=== PATIENT | female | born 1995 | race Caucasian/White ===

== ENCOUNTER 2016-09-07 09:22 | Emergency (ER) | payer MEDICAID ==
[~2016-09-07] VITALS: Ht 162.6 cm; Wt 78.0 kg
[~2016-09-07 09:22] MED LIST: BUPR75TA4
[2016-09-07 10:46] VITALS: BP 139/94
== END 2016-09-07 11:34 | disposition home or self-care (01) ==
LOC: ER 09:22
DX: F41.9 Anxiety disorder, unspecified (principal)

== ENCOUNTER 2016-12-31 18:44 | Emergency (ER) | payer MEDICAID ==
[~2016-12-31] VITALS: Ht 162.6 cm; Wt 75.3 kg
[2016-12-31 20:27] VITALS: BP 124/79
== END 2016-12-31 22:09 | disposition home or self-care (01) ==
LOC: ER 18:46
DX: O20.0 Threatened abortion (principal); Z3A.14 14 weeks gestation of pregnancy; Z90.49 Acquired absence of other specified parts of digestive tract
CPT/HCPCS: 36415; 76805; 84702

== ENCOUNTER 2017-03-24 14:50 | Observation (INO) | payer MEDICAID ==
[2017-03-24] MEDS ORDERED: PREN-96 PO (16:06)
== END 2017-03-24 15:55 | disposition home or self-care (01) | DRG 566 ==
LOC: LDRP 14:50
PROVIDERS: ADMIT Specialist; ATTEND Specialist
DX: O36.8120 Decreased fetal movements, second trimester, not applicable or unspecified (principal); O23.42 Unspecified infection of urinary tract in pregnancy, second trimester; Z3A.26 26 weeks gestation of pregnancy
CPT/HCPCS: 59025; 81002; G0378

== ENCOUNTER 2017-05-08 16:32 | Observation (INO) | payer MEDICAID ==
[~2017-05-08 16:32] MED LIST changes: +PREN-96 PO
[2017-05-08 17:13] LABS: Urine Bilirubin Negative (Negative); Urine Blood Negative /uL (Negative); Urine Color Yellow (Yellow); Urine Glucose Normal (Normal); Urine Ketone Negative (Negative); Urine Mucus FEW (None Seen); Urine Nitrite POSITIVE (Negative); Urine RBC 6 /hpf (0 - 4); Urine Squamous Epithelial Cell FEW /hpf (<5); Urine Urobilinogen Normal (Negative); Urine pH 6.5 (5.0-8.0)
== END 2017-05-08 18:36 | disposition home or self-care (01) | DRG 566 ==
LOC: LDRP 16:32
PROVIDERS: ADMIT Specialist; ATTEND Specialist
DX: O46.93 Antepartum hemorrhage, unspecified, third trimester (principal); O23.43 Unspecified infection of urinary tract in pregnancy, third trimester; Z3A.32 32 weeks gestation of pregnancy
CPT/HCPCS: 59025; 76815; 80307; 81001; 81002; G0378

== ENCOUNTER 2017-05-13 01:35 | Observation (INO) | payer MEDICAID ==
[2017-05-13 02:23] LABS: Urine Bilirubin Negative (Negative); Urine Blood 3+ /uL (Negative); Urine Color Yellow (Yellow); Urine Glucose Normal (Normal); Urine Ketone 1+ (Negative); Urine Mucus FEW (None Seen); Urine Nitrite POSITIVE (Negative); Urine RBC 69 /hpf (0 - 4); Urine Squamous Epithelial Cell FEW /hpf (<5); Urine Urobilinogen Normal (Negative); Urine WBC Clumps PRESENT /hpf (None Seen)
[2017-05-13] MEDS ORDERED: LACTATED RINGER'S 1,000 ML IV ONE (02:41)
[2017-05-13] MEDS ORDERED: LACTATED RINGER'S 1,000 ML IV SCH (02:41)
[2017-05-13] MEDS ORDERED: TERBUTALINE SULFATE 1 MG/ML 1ML VIAL SC ONE ×2 (03:22→03:30)
[2017-05-13] MEDS ORDERED: cefTRIAXone 1GM/50ML D5W 50 ML IV SCH (04:00)
== END 2017-05-13 05:16 | disposition home or self-care (01) | DRG 566 ==
LOC: LDRP 01:35
PROVIDERS: ADMIT Specialist; ATTEND Specialist
DX: O26.893 Other specified pregnancy related conditions, third trimester (principal); R10.9 Unspecified abdominal pain; Z3A.33 33 weeks gestation of pregnancy
CPT/HCPCS: 59025; 76815; 81001; 81002; 96361; 96365; 96372; G0378; J3105; J7050; 96366

== ENCOUNTER 2017-05-19 12:50 | Observation (INO) | payer MEDICAID ==
[~2017-05-19 12:50] MED LIST changes: -BUPR75TA4
== END 2017-05-19 13:55 | disposition home or self-care (01) | DRG 566 ==
LOC: LDRP 12:50
PROVIDERS: ADMIT Specialist; ATTEND Specialist
DX: O26.893 Other specified pregnancy related conditions, third trimester (principal); Q62.0 Congenital hydronephrosis; R10.9 Unspecified abdominal pain; M54.9 Dorsalgia, unspecified; Z3A.34 34 weeks gestation of pregnancy
CPT/HCPCS: 59025; 81002; G0378

== ENCOUNTER 2017-05-22 11:30 | Observation (INO) | payer MEDICAID | END 2017-05-22 13:30 | disposition home or self-care (01) | DRG 563 | LOC: LDRP 11:30 | PROVIDERS: ADMIT Specialist; ATTEND Specialist | DX: O60.03 Preterm labor without delivery, third trimester (principal); Z3A.34 34 weeks gestation of pregnancy | CPT/HCPCS: 59025; 76818; 81002; G0378 ==

== ENCOUNTER 2017-05-26 14:35 | Observation (INO) | payer MEDICAID | END 2017-05-26 16:20 | disposition home or self-care (01) | DRG 566 | LOC: LDRP 14:35 | PROVIDERS: ADMIT Obstetrics & Gynecology; ATTEND Obstetrics & Gynecology | DX: O26.93 Pregnancy related conditions, unspecified, third trimester (principal); Z3A.35 35 weeks gestation of pregnancy | CPT/HCPCS: 59025; 76818; 81002; G0378 ==

== ENCOUNTER 2017-05-29 08:10 | Observation (INO) | payer MEDICAID | END 2017-05-29 09:50 | disposition home or self-care (01) | DRG 566 | LOC: LDRP 08:10 | PROVIDERS: ADMIT Obstetrics & Gynecology; ATTEND Obstetrics & Gynecology | DX: O99.89 Other specified diseases and conditions complicating pregnancy, childbirth and the puerperium (principal); N13.30 Unspecified hydronephrosis; Z3A.35 35 weeks gestation of pregnancy | CPT/HCPCS: 59025; 76818; 81002; G0378 ==

== ENCOUNTER 2017-06-02 13:25 | Observation (INO) | payer MEDICAID ==
[2017-06-02 14:33] LABS: Urine Bilirubin Negative (Negative); Urine Blood Negative /uL (Negative); Urine Color Yellow (Yellow); Urine Glucose Normal (Normal); Urine Ketone TRACE (Negative); Urine Mucus FEW (None Seen); Urine Nitrite Negative (Negative); Urine RBC 3 /hpf (0 - 4); Urine Squamous Epithelial Cell MOD /hpf (<5); Urine Urobilinogen Normal (Negative); Urine pH 6.5 (5.0-8.0)
== END 2017-06-02 14:45 | disposition home or self-care (01) | DRG 566 ==
LOC: LDRP 13:25
PROVIDERS: ADMIT Obstetrics & Gynecology; ATTEND Obstetrics & Gynecology
DX: O26.893 Other specified pregnancy related conditions, third trimester (principal); Z3A.36 36 weeks gestation of pregnancy
CPT/HCPCS: 59025; 76818; 81001; 81002; G0378

== ENCOUNTER 2017-06-04 14:00 | Observation (INO) | payer MEDICAID | END 2017-06-04 15:20 | disposition home or self-care (01) | DRG 566 | LOC: INTOOBSV 14:00 → LDRP 14:00 | PROVIDERS: ADMIT Specialist; ATTEND Specialist | DX: O99.89 Other specified diseases and conditions complicating pregnancy, childbirth and the puerperium (principal); N13.30 Unspecified hydronephrosis; Z3A.36 36 weeks gestation of pregnancy | CPT/HCPCS: 59025; 76818; 81002; G0378 ==

== ENCOUNTER 2017-06-13 21:59 | Observation (INO) | payer MEDICAID ==
[~2017-06-13] VITALS: Ht 1 cm; Wt 0.0 kg
[2017-06-13] MEDS ORDERED: ACETAMINOPHEN 325 MG TAB PO ONE (23:53)
[2017-06-14] MEDS ORDERED: ACETAMINOPHEN 325 MG TAB PO ONE
== END 2017-06-14 00:06 | disposition home or self-care (01) | DRG 566 ==
LOC: LDRP 21:59 → INTOOBSV 21:59 → LDRP 22:14
PROVIDERS: ADMIT Obstetrics & Gynecology; ATTEND Obstetrics & Gynecology
DX: O26.893 Other specified pregnancy related conditions, third trimester (principal); M54.5 Low back pain; Z3A.37 37 weeks gestation of pregnancy
CPT/HCPCS: 59025; 76818; 81002; G0378

== ENCOUNTER 2017-06-16 00:20 | Observation (INO) | payer MEDICAID | END 2017-06-16 02:58 | disposition home or self-care (01) | DRG 566 | LOC: LDRP 00:20 | PROVIDERS: ADMIT Specialist; ATTEND Specialist | DX: O42.92 Full-term premature rupture of membranes, unspecified as to length of time between rupture and onset of labor (principal); Z3A.38 38 weeks gestation of pregnancy | CPT/HCPCS: 59025; 81002; G0378 ==

== ENCOUNTER 2017-06-18 03:27 | Observation (INO) | payer MEDICAID | END 2017-06-18 05:41 | disposition home or self-care (01) | DRG 566 | LOC: LDRP 03:27 | PROVIDERS: ADMIT Specialist; ATTEND Specialist | DX: O62.9 Abnormality of forces of labor, unspecified (principal); O26.893 Other specified pregnancy related conditions, third trimester; O26.853 Spotting complicating pregnancy, third trimester; R10.9 Unspecified abdominal pain; M54.9 Dorsalgia, unspecified; Z3A.38 38 weeks gestation of pregnancy | CPT/HCPCS: 59025; 81002; G0378 ==

== ENCOUNTER 2017-06-19 12:55 | Observation (INO) | payer MEDICAID | END 2017-06-19 14:25 | disposition home or self-care (01) | DRG 566 | LOC: LDRP 12:55 | PROVIDERS: ADMIT Specialist; ATTEND Specialist | DX: O35.8XX0 Maternal care for other (suspected) fetal abnormality and damage, not applicable or unspecified (principal); O46.93 Antepartum hemorrhage, unspecified, third trimester; O62.9 Abnormality of forces of labor, unspecified; Z3A.38 38 weeks gestation of pregnancy | CPT/HCPCS: 59025; 76818; 81002; G0378 ==

== ENCOUNTER 2017-06-21 10:45 | Observation (INO) | payer MEDICAID | END 2017-06-21 11:55 | disposition home or self-care (01) | DRG 566 | LOC: LDRP 10:45 | PROVIDERS: ADMIT Obstetrics & Gynecology; ATTEND Obstetrics & Gynecology | DX: O26.893 Other specified pregnancy related conditions, third trimester (principal); O62.9 Abnormality of forces of labor, unspecified; R10.9 Unspecified abdominal pain; Z3A.38 38 weeks gestation of pregnancy | CPT/HCPCS: 59025; 81002; G0378 ==

== ENCOUNTER 2017-06-23 09:25 | Observation (INO) | payer MEDICAID | END 2017-06-23 11:10 | disposition home or self-care (01) | DRG 566 | LOC: LDRP 09:25 | PROVIDERS: ADMIT Specialist; ATTEND Specialist | DX: O46.93 Antepartum hemorrhage, unspecified, third trimester (principal); Z3A.39 39 weeks gestation of pregnancy | CPT/HCPCS: 59025; 76818; 81002; G0378 ==

== ENCOUNTER 2017-06-24 04:20 | Inpatient (IN) | payer MEDICAID ==
[~2017-06-24] VITALS: Ht 162.6 cm; Wt 81.6 kg
[2017-06-24] MEDS ORDERED: LACT. RINGERS/OXYTOCIN 20UNITS 1,000 ML IV SCH (06:59)
[2017-06-24] MEDS ORDERED: LACTATED RINGER'S 1,000 ML IV SCH (06:59)
[2017-06-24] MEDS ORDERED: LIDOCAINE 2%HCL (LOCAL ANESTH.) INJ 20ML MDV IJ ONE (07:00)
[2017-06-24] MEDS ORDERED: DERMOPLAST 60ML BOTTLE TOP PRN (07:00)
[2017-06-24] MEDS ORDERED: PHISODERM TOP SOLN 240ML BTL TOP PRN (07:00)
[2017-06-24] MEDS ORDERED: WITCH HAZEL-GLYCERIN PAD TOP PRN (07:00)
[2017-06-24] MEDS ORDERED: NALBUPHINE HCL 10 MG/1ml INJECTION ONE (07:28)
[2017-06-24] MEDS ORDERED: PROMETHAZINE HCL 25 MG/ML 1ML ONE (07:28)
[2017-06-24] MEDS ORDERED: NALBUPHINE HCL 10 MG/1ml INJECTION IV ONE (07:30)
[2017-06-24] MEDS ORDERED: PROMETHAZINE HCL 25 MG/ML 1ML IM ONE (07:30)
[2017-06-24 07:44] LABS: Basophils # (auto) 0.1 uL; Basophils % (auto) 0.6 % (0.0-2.0); Eosinophils # (auto) 0.1 uL; Eosinophils % (auto) 0.7 % (0.0-7.0); Hematocrit 34.6 % (36.0-46.0); Hemoglobin 11.5 g/dL (12.2-16.2); Lymphocytes # (auto) 1.7 uL; Lymphocytes % (auto) 10.8 % (10.0-50.0); Mean Corpuscular Hemoglobin 27.1 pg (28.0-32.0); Mean Corpuscular Hgb Conc. 33.3 g/dL (32.0-36.0); Mean Corpuscular Volume 81.5 fL (80.0-100.0); Monocytes # (auto) 0.6 uL; Monocytes % (auto) 4.1 % (0.0-12.0); Neutrophils % (auto) 83.8 % (37.0-80.0); Nucleated Red Blood Cells % 0.1 %; Platelet Count (auto) 118 10^3/uL (140-450); Red Blood Cells 4.25 10^6/uL (4.0-5.20); Red Cell Distribution Width 18.3 % (11.8-14.3); White Blood Cell 15.6 10^3/uL (4.4-10.8)
[2017-06-24 07:52] LABS: Urine Bacteria MANY /hpf (None Seen); Urine Blood 1+ /uL (Negative); Urine Mucus FEW (None Seen); Urine Specific Gravity 1.012 (1.001-1.035); Urine WBC 72 /hpf (0 - 5); Urine WBC Clumps PRESENT /hpf (None Seen)
[2017-06-24 08:03] LABS: INR 0.89 (0.9-1.15); Partial Thromboplastin Time 25.4 sec (22.64-33.71); Prothrombin Time 9.7 sec (9.37-12.3)
[2017-06-24] MEDS ORDERED: METHYLERGONOVINE MALEATE 0.2 MG/ML AMP IM ONE (08:03)
[2017-06-24 08:04] LABS: Albumin 2.7 g/dL (3.4-5.0); BUN/Creatinine Ratio 14.3; Calcium 8.8 mg/dL (8.5-10.1); Potassium 3.6 mmol/L (3.5-5.1)
[2017-06-24 08:07] LABS: Bilirubin, Total 0.2 mg/dL (0.2-1.0); Total Protein 6.8 g/dL (6.4-8.2)
[2017-06-24] MEDS ORDERED: ACETAMINOPHEN 325 MG TAB PO PRN (09:00)
[2017-06-24] MEDS: IBUPROFEN 600 MG TAB PO PRN ×2 (09:10→20:03)
[2017-06-24 12:11] VITALS: BP 124/70
[2017-06-24 15:52] VITALS: BP 113/75
[2017-06-24 19:30] VITALS: BP 118/75
[2017-06-24 22:50] VITALS: BP 123/80
[2017-06-25 03:30] VITALS: BP 110/63
[2017-06-25 07:39] VITALS: BP 115/71
[2017-06-25 12:00] VITALS: BP 107/71
== END 2017-06-25 12:15 | disposition home or self-care (01) | DRG 560 ==
LOC: LDRP 04:20 → OBSVTOIN 04:20 → LDRP 05:56
PROVIDERS: ADMIT Specialist; ATTEND Specialist
PROC: 10E0XZZ Delivery of Products of Conception, External Approach (ICD-10-PCS; principal; 2017-06-24)
PROC: 0HQ9XZZ Repair Perineum Skin, External Approach (ICD-10-PCS; 2017-06-24)
DX: O42.92 Full-term premature rupture of membranes, unspecified as to length of time between rupture and onset of labor (principal); O70.0 First degree perineal laceration during delivery; O71.82 Other specified trauma to perineum and vulva; Z37.0 Single live birth; Z3A.39 39 weeks gestation of pregnancy
CPT/HCPCS: 36415; 59025; 59409; 80053; 81001; 81002; 85025; 85610; 85730; 86850; 86900; 86901; 96372; J2590

== ENCOUNTER 2017-11-23 09:09 | Emergency (ER) | payer MEDICAID ==
[~2017-11-23] VITALS: Ht 162.6 cm; Wt 74.8 kg
[2017-11-23 09:55] LABS: Basophils # (auto) 0.1 uL; Eosinophils # (auto) 0.1 uL; Neutrophils # (auto) 8.2 uL
[2017-11-23 09:57] LABS: Basophils % (auto) 0.7 % (0.0-2.0); Eosinophils % (auto) 1.4 % (0.0-7.0); Hematocrit 39.5 % (36.0-46.0); Hemoglobin 12.9 g/dL (12.2-16.2); Lymphocytes # (auto) 1.4 uL; Lymphocytes % (auto) 13.2 % (10.0-50.0); Mean Corpuscular Hemoglobin 24.4 pg (28.0-32.0); Mean Corpuscular Hgb Conc. 32.6 g/dL (32.0-36.0); Monocytes # (auto) 0.6 uL; Monocytes % (auto) 5.4 % (0.0-12.0); Neutrophils % (auto) 79.3 % (37.0-80.0); Platelet Count (auto) 270 10^3/uL (140-450); Red Blood Cells 5.29 10^6/uL (4.0-5.20); Red Cell Distribution Width 17.3 % (11.8-14.3); White Blood Cell 10.4 10^3/uL (4.4-10.8)
[2017-11-23 09:58] LABS: Urine Bacteria MANY /hpf (None Seen); Urine Blood 3+ /uL (Negative); Urine Mucus FEW (None Seen); Urine Specific Gravity 1.023 (1.001-1.035); Urine WBC 520 /hpf (0 - 5)
[2017-11-23 09:58] LABS: Mean Corpuscular Volume 74.7 fL (80.0-100.0)
[2017-11-23 13:25] VITALS: BP 113/60
== END 2017-11-23 14:24 | disposition home or self-care (01) ==
LOC: ER 09:09
DX: O20.0 Threatened abortion (principal); O23.41 Unspecified infection of urinary tract in pregnancy, first trimester; O26.891 Other specified pregnancy related conditions, first trimester; S39.012A Strain of muscle, fascia and tendon of lower back, initial encounter; Z3A.01 Less than 8 weeks gestation of pregnancy; Y04.2XXA Assault by strike against or bumped into by another person, initial encounter; Y93.89 Activity, other specified; Y92.89 Other specified places as the place of occurrence of the external cause; Y99.8 Other external cause status
CPT/HCPCS: 36415; 76801; 76817; 81001; 84702; 85025

== ENCOUNTER 2018-04-06 18:48 | Emergency (ER) | payer MEDICAID ==
[~2018-04-06] VITALS: Ht 162.6 cm; Wt 75.3 kg
[2018-04-06 19:33] LABS: Urine Bacteria FEW /hpf (None Seen); Urine Blood TRACE /uL (Negative); Urine Mucus FEW (None Seen); Urine Specific Gravity 1.029 (1.001-1.035); Urine WBC 93 /hpf (0 - 5)
[2018-04-06 19:34] LABS: Urine WBC Clumps PRESENT /hpf (None Seen)
[2018-04-06 19:55] LABS: Basophils # (auto) 0.1 uL; Lymphocytes # (auto) 1.3 uL
[2018-04-06 19:56] LABS: Basophils % (auto) 0.8 % (0.0-2.0); Eosinophils # (auto) 0.2 uL; Eosinophils % (auto) 1.8 % (0.0-7.0); Hematocrit 41.3 % (36.0-46.0); Mean Corpuscular Hemoglobin 26.6 pg (28.0-32.0); Mean Corpuscular Volume 78.4 fL (80.0-100.0); Monocytes # (auto) 0.5 uL; Monocytes % (auto) 4.5 % (0.0-12.0); Neutrophils # (auto) 9.5 uL; Neutrophils % (auto) 81.9 % (37.0-80.0); Nucleated Red Blood Cells % 0.1 %; Platelet Count (auto) 218 10^3/uL (140-450); Red Blood Cells 5.27 10^6/uL (4.0-5.20); Red Cell Distribution Width 16.1 % (11.8-14.3); White Blood Cell 11.6 10^3/uL (4.4-10.8)
[2018-04-06 20:13] LABS: Albumin 3.6 g/dL (3.4-5.0); Calcium 8.7 mg/dL (8.5-10.1); Potassium 3.9 mmol/L (3.5-5.1)
[2018-04-06 20:16] LABS: BUN/Creatinine Ratio 14.1; Bilirubin, Total 0.5 mg/dL (0.2-1.0); Total Protein 7.8 g/dL (6.4-8.2)
[2018-04-06] MEDS ORDERED: ONDANSETRON HCL 4 MG/2 ML VIAL IV ONE (21:00)
[2018-04-06] MEDS ORDERED: SODIUM CHLORIDE 0.9% 1,000 ML IV ONE ×2 (21:00→23:30)
[2018-04-07 00:21] VITALS: BP 122/73
[2018-04-07] MEDS ORDERED: cefTRIAXone 1GM/50ML D5W 50 ML IV ONE (01:15)
== END 2018-04-07 01:46 | disposition home or self-care (01) ==
LOC: ER 18:48
DX: O20.0 Threatened abortion (principal); O23.41 Unspecified infection of urinary tract in pregnancy, first trimester; O21.9 Vomiting of pregnancy, unspecified; Z3A.08 8 weeks gestation of pregnancy
CPT/HCPCS: 36415; 76801; 80053; 81001; 84702; 85025; 96361; 96374; 96375; 99285; J0696; J2405; J7030

== ENCOUNTER 2018-05-10 11:42 | Emergency (ER) | payer MEDICAID ==
[~2018-05-10] VITALS: Ht 162.6 cm; Wt 78.0 kg
[2018-05-10 12:17] LABS: Urine Bacteria MANY /hpf (None Seen); Urine Blood Negative /uL (Negative); Urine Mucus FEW (None Seen); Urine Specific Gravity 1.026 (1.001-1.035); Urine WBC 50 /hpf (0 - 5)
[2018-05-10 13:11] LABS: Basophils # (auto) 0.1 uL; Basophils % (auto) 0.6 % (0.0-2.0); Monocytes # (auto) 0.5 uL
[2018-05-10 13:13] LABS: Eosinophils # (auto) 0.2 uL; Hematocrit 38.8 % (36.0-46.0); Hemoglobin 13.2 g/dL (12.2-16.2); Lymphocytes # (auto) 1.7 uL; Lymphocytes % (auto) 14.9 % (10.0-50.0); Mean Corpuscular Hemoglobin 27.3 pg (28.0-32.0); Mean Corpuscular Volume 80.1 fL (80.0-100.0); Monocytes % (auto) 4.7 % (0.0-12.0); Neutrophils % (auto) 77.8 % (37.0-80.0); Nucleated Red Blood Cells % 0.3 %; Platelet Count (auto) 226 10^3/uL (140-450); Red Blood Cells 4.85 10^6/uL (4.0-5.20); Red Cell Distribution Width 16.2 % (11.8-14.3); White Blood Cell 11.5 10^3/uL (4.4-10.8)
[2018-05-10 13:35] LABS: Albumin 3.3 g/dL (3.4-5.0); BUN/Creatinine Ratio 19.6; Calcium 8.7 mg/dL (8.5-10.1); Potassium 3.7 mmol/L (3.5-5.1)
[2018-05-10 13:37] LABS: Bilirubin, Total 0.7 mg/dL (0.2-1.0); Total Protein 7.6 g/dL (6.4-8.2)
[2018-05-10 13:48] VITALS: BP 121/78
== END 2018-05-10 16:57 | disposition home or self-care (01) ==
LOC: ER 11:43
DX: O23.41 Unspecified infection of urinary tract in pregnancy, first trimester (principal); O26.611 Liver and biliary tract disorders in pregnancy, first trimester; K76.0 Fatty (change of) liver, not elsewhere classified; Z3A.13 13 weeks gestation of pregnancy
CPT/HCPCS: 36415; 76705; 76805; 80053; 81001; 82150; 83690; 84702; 85025

== ENCOUNTER 2018-06-27 10:50 | Observation (INO) | payer SELFPAY ==
[2018-06-27] MEDS ORDERED: cefTRIAXone 1GM/50ML D5W 50 ML IV ONE (12:30)
[2018-06-27] MEDS ORDERED: SODIUM CHLORIDE 0.9% 500 ML IV ONE (12:30)
== END 2018-06-27 14:40 | disposition home or self-care (01) | DRG 833 ==
LOC: LDRP 10:50
PROVIDERS: ADMIT Specialist; ATTEND Specialist
DX: O23.42 Unspecified infection of urinary tract in pregnancy, second trimester (principal); O26.852 Spotting complicating pregnancy, second trimester; Z3A.20 20 weeks gestation of pregnancy
CPT/HCPCS: 59025; 76815; 81002; 86850; 86900; 86901; 96365; G0378; J0696; J7030; 96374

== ENCOUNTER 2018-09-17 21:23 | Observation (INO) | payer MEDICAID | END 2018-09-17 22:33 | disposition home or self-care (01) | DRG 566 | LOC: LDRP 21:23 | PROVIDERS: ADMIT Obstetrics & Gynecology; ATTEND Obstetrics & Gynecology | DX: O26.893 Other specified pregnancy related conditions, third trimester (principal); R10.30 Lower abdominal pain, unspecified; Z3A.32 32 weeks gestation of pregnancy | CPT/HCPCS: 59025; 81002; G0378 ==

== ENCOUNTER 2018-09-21 14:15 | Observation (INO) | payer MEDICAID | END 2018-09-21 17:00 | disposition home or self-care (01) | DRG 566 | LOC: LDRP 14:15 | PROVIDERS: ADMIT Obstetrics & Gynecology; ATTEND Obstetrics & Gynecology | DX: O26.853 Spotting complicating pregnancy, third trimester (principal); F32.9 Major depressive disorder, single episode, unspecified; O62.9 Abnormality of forces of labor, unspecified; F99 Mental disorder, not otherwise specified; O99.343 Other mental disorders complicating pregnancy, third trimester; Z3A.32 32 weeks gestation of pregnancy | CPT/HCPCS: 59025; 76815; 76817; 81002; G0378 ==

== ENCOUNTER 2018-09-23 18:21 | Observation (INO) | payer MEDICAID ==
[2018-09-23 19:00] LABS: Alcohol, Urine < 3.0 mg/dL (0-5); Amphetamine Screen, Urine NEGATIVE (NEGATIVE); Barbiturate Scree,Urine NEGATIVE (NEGATIVE); Benzodiazephine Screen, Urine NEGATIVE (NEGATIVE); Cannabinoid Screen, Urine NEGATIVE (NEGATIVE); Cocaine Screen, Urine NEGATIVE (NEGATIVE); Opiate Scree,Urine NEGATIVE (NEGATIVE); Phencyclidine Screen, Urine NEGATIVE (NEGATIVE)
[2018-09-23 19:20] LABS: Urine Bacteria FEW /hpf (None Seen); Urine Blood Negative /uL (Negative); Urine Mucus FEW (None Seen); Urine Specific Gravity 1.024 (1.001-1.035); Urine WBC 37 /hpf (0 - 5)
== END 2018-09-23 19:38 | disposition home or self-care (01) | DRG 566 ==
LOC: LDRP 18:21
PROVIDERS: ADMIT Obstetrics & Gynecology; ATTEND Obstetrics & Gynecology
DX: O42.913 Preterm premature rupture of membranes, unspecified as to length of time between rupture and onset of labor, third trimester (principal); O26.893 Other specified pregnancy related conditions, third trimester; R10.33 Periumbilical pain; Z3A.32 32 weeks gestation of pregnancy
CPT/HCPCS: 59025; 80307; 81001; 81002; G0378

== ENCOUNTER 2018-10-01 12:25 | Observation (INO) | payer MEDICAID | END 2018-10-01 13:05 | disposition home or self-care (01) | DRG 566 | LOC: LDRP 12:25 | PROVIDERS: ADMIT Specialist; ATTEND Specialist | DX: O26.853 Spotting complicating pregnancy, third trimester (principal); O26.893 Other specified pregnancy related conditions, third trimester; F32.9 Major depressive disorder, single episode, unspecified; R10.9 Unspecified abdominal pain; O99.343 Other mental disorders complicating pregnancy, third trimester; Z3A.34 34 weeks gestation of pregnancy | CPT/HCPCS: 59025; 81002; G0378 ==

== ENCOUNTER → 2018-10-18 | Outpatient (CLI) | payer MEDICAID ==
[2018-10-18 11:31] LABS: Basophils # (auto) 0 uL; Basophils % (auto) 0.3 % (0.0-2.0); Eosinophils # (auto) 0.2 uL; Hemoglobin 11.4 g/dL (12.2-16.2); Lymphocytes # (auto) 1.5 uL; Mean Corpuscular Volume 78.5 fL (80.0-100.0); Nucleated Red Blood Cells % 0.3 %
[2018-10-18 11:34] LABS: Eosinophils % (auto) 2.1 % (0.0-7.0); Hematocrit 33.9 % (36.0-46.0); Lymphocytes % (auto) 16.3 % (10.0-50.0); Mean Corpuscular Hemoglobin 26.3 pg (28.0-32.0); Mean Corpuscular Hgb Conc. 33.6 g/dL (32.0-36.0); Monocytes # (auto) 0.5 uL; Monocytes % (auto) 5.2 % (0.0-12.0); Neutrophils % (auto) 76.1 % (37.0-80.0); Platelet Count (auto) 104 10^3/uL (140-450); Red Blood Cells 4.32 10^6/uL (4.0-5.20); White Blood Cell 9.2 10^3/uL (4.4-10.8)
== END | disposition home or self-care (01) ==
LOC: LAB 10:57
PROVIDERS: ATTEND Obstetrics & Gynecology
DX: O23.593 Infection of other part of genital tract in pregnancy, third trimester (principal); Z3A.35 35 weeks gestation of pregnancy
CPT/HCPCS: 36415; 85025; 87081

== ENCOUNTER 2018-11-03 19:32 | Observation (INO) | payer MEDICAID ==
[2018-11-03 21:43] LABS: Urine Bacteria FEW /hpf (None Seen); Urine Blood TRACE /uL (Negative); Urine Specific Gravity 1.007 (1.001-1.035); Urine WBC 26 /hpf (0 - 5)
[2018-11-05] MEDS ORDERED: CEPH250C PO (00:25)
== END 2018-11-03 23:07 | disposition home or self-care (01) | DRG 566 ==
LOC: LDRP 19:32
PROVIDERS: ADMIT Specialist; ATTEND Specialist
DX: O26.853 Spotting complicating pregnancy, third trimester (principal); F32.9 Major depressive disorder, single episode, unspecified; O99.343 Other mental disorders complicating pregnancy, third trimester; Z3A.38 38 weeks gestation of pregnancy
CPT/HCPCS: 59025; 76818; 81001; 81002; G0378

== ENCOUNTER 2018-11-04 08:53 | Observation (INO) | payer MEDICAID ==
[~2018-11-04] VITALS: Ht 162.6 cm; Wt 86.2 kg
[2018-11-04] MEDS ORDERED: cefTRIAXone 1GM/50ML D5W 50 ML IV ONE (09:45)
[2018-11-04] MEDS ORDERED: SODIUM CHLORIDE 0.9% 1,000 ML IV ONE (09:45)
[2018-11-04 10:06] LABS: Basophils # (auto) 0.1 uL; Basophils % (auto) 0.5 % (0.0-2.0); Eosinophils # (auto) 0.2 uL; Mean Corpuscular Hemoglobin 25.8 pg (28.0-32.0); Monocytes # (auto) 0.5 uL
[2018-11-04 10:07] LABS: Eosinophils % (auto) 1.9 % (0.0-7.0); Hematocrit 34.9 % (36.0-46.0); Hemoglobin 11.5 g/dL (12.2-16.2); Lymphocytes # (auto) 1.4 uL; Lymphocytes % (auto) 12.4 % (10.0-50.0); Mean Corpuscular Hgb Conc. 33.1 g/dL (32.0-36.0); Mean Corpuscular Volume 78.1 fL (80.0-100.0); Monocytes % (auto) 4.2 % (0.0-12.0); Neutrophils # (auto) 9.3 uL; Nucleated Red Blood Cells % 0.4 %; Platelet Count (auto) 120 10^3/uL (140-450); Red Blood Cells 4.47 10^6/uL (4.0-5.20); Red Cell Distribution Width 17.7 % (11.8-14.3); White Blood Cell 11.5 10^3/uL (4.4-10.8)
[2018-11-05] MEDS ORDERED: CEPH250C PO (00:25)
== END 2018-11-04 11:30 | disposition home or self-care (01) | DRG 566 ==
LOC: LDRP 08:53
PROVIDERS: ADMIT Specialist; ATTEND Specialist
DX: O26.853 Spotting complicating pregnancy, third trimester (principal); Z3A.36 36 weeks gestation of pregnancy
CPT/HCPCS: 36415; 59025; 76818; 81002; 85025; 96365; G0378; J0696; J7030; 96361

== ENCOUNTER 2018-11-04 17:35 | Observation (INO) | payer MEDICAID ==
[2018-11-05] MEDS ORDERED: CEPH250C PO (00:25)
== END 2018-11-04 18:42 | disposition home or self-care (01) | DRG 566 ==
LOC: LDRP 17:35
PROVIDERS: ADMIT Specialist; ATTEND Specialist
DX: O00.01 Abdominal pregnancy with intrauterine pregnancy (principal); Z3A.38 38 weeks gestation of pregnancy
CPT/HCPCS: 59025; 81002; G0378

== ENCOUNTER 2018-12-15 02:42 | Inpatient (IN) | payer MEDICAID ==
[~2018-12-15] VITALS: Ht 162.6 cm; Wt 77.3 kg
[~2018-12-15 02:42] MED LIST changes: +CEPH250C PO
[2018-12-15 03:59] LABS: Eosinophils # (auto) 0 uL; Monocytes # (auto) 0.5 uL
[2018-12-15] MEDS ORDERED: ACETAMINOPHEN 325 MG TAB PO ONE (04:00)
[2018-12-15] MEDS ORDERED: ACETAMINOPHEN 500 MG TAB PO ONE ×2 (04:00→17:00)
[2018-12-15 04:03] LABS: Basophils # (auto) 0.1 uL; Basophils % (auto) 0.5 % (0.0-2.0); Eosinophils % (auto) 0.2 % (0.0-7.0); Hematocrit 41.2 % (36.0-46.0); Hemoglobin 13.7 g/dL (12.2-16.2); Lymphocytes # (auto) 0.8 uL; Lymphocytes % (auto) 5.8 % (10.0-50.0); Mean Corpuscular Hemoglobin 25.9 pg (28.0-32.0); Mean Corpuscular Hgb Conc. 33.2 g/dL (32.0-36.0); Mean Corpuscular Volume 77.9 fL (80.0-100.0); Monocytes % (auto) 3.2 % (0.0-12.0); Neutrophils # (auto) 13.2 uL; Neutrophils % (auto) 90.3 % (37.0-80.0); Platelet Count (auto) 165 10^3/uL (140-450); Red Blood Cells 5.29 10^6/uL (4.0-5.20); Red Cell Distribution Width 16.6 % (11.8-14.3); White Blood Cell 14.6 10^3/uL (4.4-10.8)
[2018-12-15] MEDS ORDERED: SODIUM CHLORIDE 0.9% 2,000 ML IV ONE (04:15)
[2018-12-15 04:16] LABS: Urine Bacteria NONE SEEN /hpf (None Seen); Urine Blood 2+ /uL (Negative); Urine Hyaline Cast FEW /lpf (0 - 2); Urine Mucus FEW (None Seen); Urine Specific Gravity 1.022 (1.001-1.035); Urine WBC 18 /hpf (0 - 5)
[2018-12-15 04:21] LABS: Calcium 8.9 mg/dL (8.5-10.1); Potassium 3.5 mmol/L (3.5-5.1)
[2018-12-15 04:22] LABS: Lactic Acid w/Reflex 3.4 mmol/L (0.4-2.0)
[2018-12-15 04:24] LABS: BUN/Creatinine Ratio 9.1; Bilirubin, Total 0.4 mg/dL (0.2-1.0); Total Protein 7.9 g/dL (6.4-8.2)
[2018-12-15] MEDS ORDERED: SODIUM CHLORIDE 0.9% 2,350 ML IV ONE (06:15)
[2018-12-15] MEDS ORDERED: VANCOMYCIN PER PHARMACY 1,000 MG IV SCH (06:15)
[2018-12-15] MEDS ORDERED: PIPERACILLIN-TAZOB 3.375GM 100 ML IV ONE (06:30)
[2018-12-15] MEDS ORDERED: SODIUM CHLORIDE 0.9% 1,000 ML IV ONE (06:45)
[2018-12-15] MEDS ORDERED: IOHEXOL 300 MG/ML 100ML BOTTLE IJ ONE (07:37)
[2018-12-15 07:50] LABS: INR 1.04 (0.9-1.15); Partial Thromboplastin Time 27.3 sec (23.64-32.05)
[2018-12-15] MEDS ORDERED: SODIUM CHLORIDE 0.9% 1,000 ML IV SCH (09:07)
[2018-12-15] MEDS: VANCOMYCIN 1,250 MG in D5W 5% 250 ML IV SCH ×2 (09:12→20:59)
[2018-12-15] MEDS ORDERED: ACETAMINOPHEN 500 MG TAB PO PRN (09:15)
[2018-12-15] MEDS ORDERED: cefTRIAXone 1GM/50ML D5W 50 ML IV ONE (09:15)
[2018-12-15] MEDS ORDERED: traMADol HCL 50 MG TAB PO PRN (09:15)
[2018-12-15] MEDS ORDERED: PROMETHAZINE HCL 25 MG/ML 1ML IV PRN (09:15)
[2018-12-15] MEDS ORDERED: NITROGLYCERIN 0.4 MG SL TAB SL PRN (09:15)
[2018-12-15] MEDS ORDERED: MORPHINE SULF INJ 2 MG/ML SYRINGE 1ML IV PRN (09:15)
[2018-12-15] MEDS ORDERED: TEMAZEPAM 15 MG CAP PO PRN (09:15)
[2018-12-15] MEDS ORDERED: MORPHINE SULFATE 4 MG/ML SYR/VIAL IV PRN (09:15)
[2018-12-15] MEDS ORDERED: metroNIDAZOLE 500MG/100ML 100 ML IV ONE (09:30)
[2018-12-15] MEDS: FAMOTIDINE (10MG/ML) 2ML VL IV SCH ×2 (09:35→20:59)
[2018-12-15 09:36] LABS: Amylase 33 U/L (25-115); Lipase 77 U/L (73-393)
[2018-12-15] MEDS: ENOXAPARIN SOD 40 MG/0.4 ML SYRINGE SC SCH (10:04)
--- NOTE | 2018-12-15 10:46 | NUR ---
Telemetry admit from ER AMBREEN GLASS admitted to Telemetry unit after SBAR received. Patient oriented to Yelitza Riddle, primary RN, unit, room, bed, and unit policies regarding patient care and visiting hours. Patient now on continuous telemetry monitoring, tele box # HC-1 and telemetry reading on arrival to unit is [id number]. Patient placed on bedside oxygen, weighed by bed scale and encouraged to call if they need something. All questions and concerns addressed, patient verbalized understanding.
[2018-12-15 11:00] VITALS: BP 109/63
[2018-12-15] MEDS: SODIUM CHLORIDE 0.9% 1,000 ML IV SCH ×2 (11:17→19:16)
[2018-12-15 12:49] LABS: Alcohol, Urine < 3.0 mg/dL (0-5); Amphetamine Screen, Urine NEGATIVE (NEGATIVE); Barbiturate Scree,Urine NEGATIVE (NEGATIVE); Benzodiazephine Screen, Urine NEGATIVE (NEGATIVE); Cannabinoid Screen, Urine NEGATIVE (NEGATIVE); Cocaine Screen, Urine NEGATIVE (NEGATIVE); Opiate Scree,Urine NEGATIVE (NEGATIVE); Phencyclidine Screen, Urine NEGATIVE (NEGATIVE)
[2018-12-15] MEDS: PIPERACILLIN-TAZOB 3.375GM 100 ML IV SCH ×2 (12:59→18:25)
[2018-12-15] MEDS ORDERED: MANNITOL FTV 25% 12.5 GM/50 ML 50 ML IV ONE (13:00)
[2018-12-15 13:26] VITALS: BP 109/63
--- NOTE | 2018-12-15 14:43 | NUR ---
Levin catheter insertion Patient assessed and determined to be in need of levin catheter. Order obtained from Dr. Santos. Patient educated on catheter and reason for insertion. All questions answered. Levin catheter 16 gauge [place] inserted with clean sterile technique. Patient tolerated well.
[2018-12-15] MEDS: metroNIDAZOLE 500MG/100ML 100 ML IV SCH ×2 (15:16→22:18)
[2018-12-15 16:37] VITALS: BP 106/65
--- NOTE | 2018-12-15 16:50 | NUR ---
Temp-103.1, paged Dr. Dent and returned call. Orders received.
--- NOTE | 2018-12-15 19:05 | NUR ---
Returned the breast pump machine borrowed from [facility].
[2018-12-15 22:00] VITALS: BP 86/56
[2018-12-16] MEDS: PIPERACILLIN-TAZOB 3.375GM 100 ML IV SCH ×4 (00:49→17:42)
[2018-12-16] MEDS: SODIUM CHLORIDE 0.9% 1,000 ML IV SCH ×2 (01:05→08:48)
[2018-12-16 05:00] VITALS: BP 111/73
[2018-12-16] MEDS: metroNIDAZOLE 500MG/100ML 100 ML IV SCH ×3 (05:07→23:02)
[2018-12-16 05:49] LABS: Basophils # (auto) 0 uL; Eosinophils # (auto) 0 uL; Hemoglobin 11.2 g/dL (12.2-16.2); Lymphocytes # (auto) 1.3 uL; Monocytes # (auto) 0.3 uL; Neutrophils # (auto) 4.7 uL; Neutrophils % (auto) 74.4 % (37.0-80.0); White Blood Cell 6.3 10^3/uL (4.4-10.8)
[2018-12-16 05:52] LABS: Basophils % (auto) 0.3 % (0.0-2.0); Eosinophils % (auto) 0.7 % (0.0-7.0); Hematocrit 32.4 % (36.0-46.0); Mean Corpuscular Hemoglobin 26.7 pg (28.0-32.0); Mean Corpuscular Hgb Conc. 34.6 g/dL (32.0-36.0); Mean Corpuscular Volume 77.2 fL (80.0-100.0); Monocytes % (auto) 4.6 % (0.0-12.0); Nucleated Red Blood Cells % 0.1 %; Platelet Count (auto) 125 10^3/uL (140-450); Red Blood Cells 4.21 10^6/uL (4.0-5.20); Red Cell Distribution Width 16.5 % (11.8-14.3)
[2018-12-16 06:20] LABS: Albumin 2.7 g/dL (3.4-5.0); BUN/Creatinine Ratio 8.2; Bilirubin, Total 0.6 mg/dL (0.2-1.0)
[2018-12-16 06:25] LABS: Potassium 2.8 mmol/L (3.5-5.1)
--- NOTE | 2018-12-16 06:45 | NUR ---
CRITICAL LAB CALLED PT POTASSIUM IS 2.8. PAGED HOSPITALIST. AWAITING CALL BACK.
--- NOTE | 2018-12-16 07:10 | NUR ---
HOSPITALIST ABBY TAYLOR RETURNED PAGE. NEW ORDERS RECEIVED.
--- NOTE | 2018-12-16 07:30 | NUR ---
Opening Shift Note RECEIVED REPORT FROM NOC RN. Assumed care of patient, awake and alert. No S/S of distress/SOB or pain. BED IN LOWEST, LOCKED POSITION WITH SIDERAILS UP x2. Instructed on POC and to call for assist PRN, will continue to monitor for changes Q1hr and PRN.
[2018-12-16] MEDS ORDERED: POTASSIUM CHLORIDE 40 MEQ, LIDOCAINE 1% (LOCAL ANESTH.) 4 ML in SODIUM CHL 0.9% 100 ML IV ONE (07:45)
[2018-12-16 08:05] VITALS: BP 115/74
[2018-12-16] MEDS: cefTRIAXone 1GM/50ML D5W 50 ML IV SCH (08:41)
[2018-12-16 09:00] VITALS: BP 115/74
[2018-12-16] MEDS: FAMOTIDINE (10MG/ML) 2ML VL IV SCH ×2 (09:16→21:22)
[2018-12-16] MEDS: VANCOMYCIN 1,250 MG in D5W 5% 250 ML IV SCH ×2 (09:16→21:22)
[2018-12-16] MEDS: ENOXAPARIN SOD 40 MG/0.4 ML SYRINGE SC SCH (09:49)
--- NOTE | 2018-12-16 11:06 | NUR ---
DR. DELA CRUZ AT BEDSIDE.
[2018-12-16] MEDS ORDERED: POTASSIUM EFFERVESENT TAB 25 MEQ PO ONE (11:15)
[2018-12-16] MEDS: SOD CHL 0.9%/ KCL 40MEQ 1,000 ML IV SCH ×2 (11:37→21:21)
[2018-12-16 13:00] VITALS: BP 125/80
[2018-12-16 17:33] VITALS: BP 127/73
--- NOTE | 2018-12-16 20:30 | NUR ---
IV removal IV DC'd with clean sterile technique, catheter fully intact. Pressure dressing applied to site. Patient tolerated well. NOTE: BOTH IV REMOVED. LEFT AC WAS LEAKING. RIGHT AC INFILTRATED. BOTH WERE HURTING THE PT.
--- NOTE | 2018-12-16 21:00 | NUR ---
IV insertion IV access obtained, via clean sterile technique by inserting 22 gauge catheter at LEFT FOREARM after 2 attempt(s). IV secured properly. No trauma to site. Patient tolerated well. Addendum: 12/16/18 at 2303 by Alyce Snow RN PT STATED SHE DID NOT WANT TO HAVE TWO IVS.
[2018-12-16 22:00] VITALS: BP 126/71
[2018-12-17] MEDS: PIPERACILLIN-TAZOB 3.375GM 100 ML IV SCH ×4 (00:24→17:48)
[2018-12-17] MEDS: SOD CHL 0.9%/ KCL 40MEQ 1,000 ML IV SCH ×3 (03:55→20:41)
[2018-12-17 05:00] VITALS: BP 123/79
[2018-12-17] MEDS: metroNIDAZOLE 500MG/100ML 100 ML IV SCH ×3 (05:12→22:35)
[2018-12-17 06:35] LABS: Albumin 2.8 g/dL (3.4-5.0); Calcium 8.2 mg/dL (8.5-10.1); Potassium 3.8 mmol/L (3.5-5.1)
[2018-12-17 06:38] LABS: BUN/Creatinine Ratio 5.7; Bilirubin, Total 0.4 mg/dL (0.2-1.0); Total Protein 6.5 g/dL (6.4-8.2)
[2018-12-17 08:00] VITALS: BP 124/67
[2018-12-17] MEDS: FAMOTIDINE (10MG/ML) 2ML VL IV SCH ×2 (08:39→20:40)
[2018-12-17] MEDS: cefTRIAXone 1GM/50ML D5W 50 ML IV SCH (08:39)
[2018-12-17 09:00] VITALS: BP 124/67
[2018-12-17] MEDS: VANCOMYCIN 1,500 MG in D5W 5% 250 ML IV SCH ×2 (09:19→20:40)
[2018-12-17] MEDS: ENOXAPARIN SOD 40 MG/0.4 ML SYRINGE SC SCH (09:51)
[2018-12-17] MEDS ORDERED: GOLYTELY 4L KIT PO ONE (12:00)
[2018-12-17 13:00] VITALS: BP 120/68
[2018-12-17 17:17] VITALS: BP 130/77
--- NOTE | 2018-12-17 19:40 | NUR ---
Opening Shift Note Assumed care of patient, awake and alert, resting in bed. No S/S of distress or SOB noted. Respirations are even and unlabored. Updated pt. on POC and instructed to call for assistance as needed, Pt. verbalized understanding. Bed locked in lowest position, side rails up x2, call light within reach. Instructed patient to keep drinking the Golytely for procedure tomorrow, patient stated "Im having a hard time drinking this stuff, its so gross and makes me want to vomit." Encouraged patient to keep drinking the Golytely otherwise procedure will have to be rescheduled. Patient verbalized understanding and provided patient with juice and ice chips to help drink Golytely. Instructed that they will be NPO after midnight. Patient verbalized understanding.
--- NOTE | 2018-12-17 21:30 | NUR ---
Golytely: Patient still has a little more than 50% of Golytle to finish till Goal is reached by midnight. Instructed patient that they need to drink the rest of the Golytely for the procedure to clear intestines for scoping. Patient state "Its so hard and gross. Im trying Im really trying I want to go home so Ill try my best." Patient verbalized understanding and will try to finish the golytely by midnight.
[2018-12-17 22:00] VITALS: BP 122/67
--- NOTE | 2018-12-18 | NUR ---
Golytely and NPO: Patient is now NPO and Golytely is still a little over the goal but has almost been reached. Patient is resting in bed with breaths even and unlabored.
[2018-12-18] MEDS: PIPERACILLIN-TAZOB 3.375GM 100 ML IV SCH ×2 (00:11→06:08)
[2018-12-18] MEDS ORDERED: GOLYTELY 4L KIT PO ONE (04:00)
--- NOTE | 2018-12-18 04:07 | NUR ---
Rest of Golytely: Patient woken up to drink the rest of Golytely before procedure. Instructed patient that they need to drink the rest of their Golytley to complete the pre procedure preparation. Patient verbalized understanding this time and is to drink the rest of her golytely.
[2018-12-18] MEDS: SOD CHL 0.9%/ KCL 40MEQ 1,000 ML IV SCH ×3 (04:55→21:35)
[2018-12-18 05:00] VITALS: BP 119/71
--- NOTE | 2018-12-18 05:00 | NUR ---
PATIENT VOMITED: PATIENT STATED TO HAVE BEEN ABLE TO DRINK ALL THE REST OF HER GOLYTELY, HOWEVER, PATIENT STATED THAT SHE THREW A LOT OF IT BACK UP. IT IS UNKNOWN OF THE EXACT AMOUNT PATIENT WAS ABLE TO CONSUME.
[2018-12-18] MEDS: metroNIDAZOLE 500MG/100ML 100 ML IV SCH ×3 (05:02→21:39)
--- NOTE | 2018-12-18 07:25 | NUR ---
Opening Shift Note Received report from [place] BETANCOURT. Assumed care of patient, asleep. On NPO for colonoscopy today. Placed call light within reach, kept 2 side rails up, will continue to monitor for changes Q1hr and PRN.
[2018-12-18 08:00] VITALS: BP 111/65
[2018-12-18] MEDS: cefTRIAXone 1GM/50ML D5W 50 ML IV SCH (08:35)
[2018-12-18 08:39] VITALS: BP 111/65
[2018-12-18] MEDS ORDERED: SODIUM CHLORIDE LOCK 10 ML ONE (08:43)
[2018-12-18] MEDS ORDERED: diphenhdrAMINE HCL 50 MG/1 ML VL ONE (08:43)
[2018-12-18] MEDS: ENOXAPARIN SOD 40 MG/0.4 ML SYRINGE SC SCH (09:06)
[2018-12-18] MEDS: FAMOTIDINE (10MG/ML) 2ML VL IV SCH ×2 (09:06→21:38)
--- NOTE | 2018-12-18 10:38 | NUR ---
NUTRITION ASSESSMENT NOTES Please refer to link notes of nutrition screen form filed under the intervention section of the plan of care for further details. Est. Needs: 1600 kcal to 2000 kcal (20-25 kcal/kgBW), 64 gms to 80 gms pro (0.8-1.0 gms/kgBW). Will continue to monitor pertinent labs and reassess nutrient need prn Thank you. Addendum: 12/18/18 at [address] Amended: Links added.
[2018-12-18] MEDS: VANCOMYCIN 1,500 MG in D5W 5% 250 ML IV SCH (10:56)
--- NOTE | 2018-12-18 11:35 | NUR ---
PATIENT ASSISTED TO PRE-OP BY BED FOR COLONOSCOPY. ENDORSED TO OR NURSE.
--- NOTE | 2018-12-18 11:45 | NUR ---
Dr. Malcolm at bedside. Patient is off unit. Received verbal order to dc levin when patient comes back.
[2018-12-18] MEDS: MIDAZOLAM HCL 5 MG/ML-1ML VIAL ONE ×3 (11:52→12:00)
[2018-12-18] MEDS: fentaNYL CITRATE 100 MCG/2 ML VL ONE ×3 (11:52→12:00)
[2018-12-18] MEDS ORDERED: fentaNYL CITRATE 100 MCG/2 ML VL ONE (12:04)
[2018-12-18] MEDS ORDERED: MIDAZOLAM HCL 5 MG/ML-1ML VIAL ONE (12:04)
--- NOTE | 2018-12-18 13:15 | NUR ---
PATIENT IS ALREADY BACK TO ROOM, RECEIVED BY COVERING NURSE AMEENA BETANCOURT. PATIENT IS ALERT AND ORIENTED X 4, NO COMPLAINTS OF PAIN AT THIS TIME. Order to discontinue levin catheter. Levin dc'd with clean technique following deflation of balloon. Patient tolerated well with no complaints of pain. Continue care.
[2018-12-18 13:34] VITALS: BP 113/81
--- NOTE | 2018-12-18 14:30 | NUR ---
IV removal Noted IV infiltrated. IV DC'd with clean sterile technique, catheter fully intact. Pressure dressing applied to site. Patient tolerated well. Failed IV insertion 2x, will try again by another nurse. Will hold Vanco IV for awhile, will start flagyl IV when vanco is done.
--- NOTE | 2018-12-18 15:35 | NUR ---
IV insertion New IV access obtained, via clean sterile technique by inserting gauge catheter at right hand after 1 attempt each by Tami BETANCOURT & Mariela BETANCOURT. IV secured properly. No trauma to site. Patient tolerated well.
[2018-12-18 16:17] VITALS: BP 124/75
--- NOTE | 2018-12-18 18:00 | NUR ---
EKG DONE, PLACED IN CHART.
--- NOTE | 2018-12-18 19:35 | NUR ---
Opening Shift Note Assumed care of patient, awake and alert. No S/S of distress/SOB or pain. Bed locked in lowest position, side rails upx2, call light within reach. Instructed on POC and to call for assist PRN, will continue to monitor for changes Q1hr and PRN.
[2018-12-18 21:21] VITALS: BP 121/76
[2018-12-19 04:18] VITALS: BP 101/74
[2018-12-19] MEDS: SOD CHL 0.9%/ KCL 40MEQ 1,000 ML IV SCH (05:49)
[2018-12-19] MEDS: metroNIDAZOLE 500MG/100ML 100 ML IV SCH (05:49)
[2018-12-19 06:55] LABS: Calcium 8.6 mg/dL (8.5-10.1); Magnesium 2.3 mg/dL (1.6-2.6); Phosphorus 4.3 mg/dL (2.5-4.90); Potassium 3.3 mmol/L (3.5-5.1)
[2018-12-19 06:59] LABS: Basophils # (auto) 0 uL; Hemoglobin 12.8 g/dL (12.2-16.2); Mean Corpuscular Hgb Conc. 33.8 g/dL (32.0-36.0); Monocytes # (auto) 0.4 uL; White Blood Cell 5.9 10^3/uL (4.4-10.8)
[2018-12-19 07:03] LABS: Basophils % (auto) 0.7 % (0.0-2.0); Eosinophils # (auto) 0.3 uL; Eosinophils % (auto) 4.3 % (0.0-7.0); Hematocrit 37.8 % (36.0-46.0); Lymphocytes # (auto) 1.7 uL; Lymphocytes % (auto) 29.6 % (10.0-50.0); Mean Corpuscular Volume 77.1 fL (80.0-100.0); Monocytes % (auto) 6.6 % (0.0-12.0); Neutrophils # (auto) 3.5 uL; Neutrophils % (auto) 58.8 % (37.0-80.0); Nucleated Red Blood Cells % 0.2 %; Platelet Count (auto) 165 10^3/uL (140-450); Red Blood Cells 4.91 10^6/uL (4.0-5.20); Red Cell Distribution Width 16.3 % (11.8-14.3)
[2018-12-19 08:00] VITALS: BP 111/75
[2018-12-19] MEDS: cefTRIAXone 1GM/50ML D5W 50 ML IV SCH (09:38)
[2018-12-19] MEDS: FAMOTIDINE (10MG/ML) 2ML VL IV SCH (09:38)
[2018-12-19] MEDS: ENOXAPARIN SOD 40 MG/0.4 ML SYRINGE SC SCH (09:38)
[2018-12-19] MEDS ORDERED: POTASSIUM CHL 20 Meq TABLET PO ONE (11:00)
--- NOTE | 2018-12-19 13:31 | NUR ---
DISCHARGE NOTE Discharge instructions given as ordered. Encourage to follow up with PMD as instructed. All questions and concerns addressed. Patient verbalized understanding. Medication reconciliation form completed and copy given to patient. IV removed with catheter intact, pressure dressing applied. Telemetry unit returned to ICU. Patient taken to vehicle via wheelchair with all personal belongings, accompanied by staff and family member. No distress noted at time of departure.
== END 2018-12-19 13:31 | disposition home or self-care (01) | DRG 720 ==
LOC: ER 02:46 → TELE 02:47 → TELE-WESTW 10:12
PROVIDERS: ADMIT Internal Medicine; ATTEND Internal Medicine Nephrology
PROC: 0DBE8ZX Excision of Large Intestine, Via Natural or Artificial Opening Endoscopic, Diagnostic (ICD-10-PCS; principal; 2018-12-18 11:48)
DX: A41.9 Sepsis, unspecified organism (principal); K76.0 Fatty (change of) liver, not elsewhere classified; R16.2 Hepatomegaly with splenomegaly, not elsewhere classified; N13.6 Pyonephrosis; K52.9 Noninfective gastroenteritis and colitis, unspecified; E86.0 Dehydration; E87.6 Hypokalemia; Z90.49 Acquired absence of other specified parts of digestive tract; Z84.89 Family history of other specified conditions; Z79.899 Other long term (current) drug therapy
CPT/HCPCS: 36415; 36600; 45380; 71045; 74177; 78582; 80048; 80053; 80202; 80307; 81001; 81025; 82150; 82553; 82805; 83605; 83690; 83735; 84100; 84439; 84443; 84484; 84702; 85025; 85379; 85384; 85610; 85652; 85730; 86141; 86850; 86900; 86901; 87040; 87045; 87086; 87493; 87899; 93306; 93970; 96361; 96365; 96368; G0378; J0696; J2001; J2250; J2543; J3490; J7060

== ENCOUNTER 2018-12-30 11:48 | Emergency (ER) | payer MEDICAID ==
[~2018-12-30] VITALS: Ht 162.6 cm; Wt 78.5 kg
[~2018-12-30 11:48] MED LIST changes: -CEPH250C PO
[2018-12-30 12:33] LABS: Urine Bacteria FEW /hpf (None Seen); Urine Blood Negative /uL (Negative); Urine Mucus FEW (None Seen); Urine Specific Gravity 1.022 (1.001-1.035); Urine WBC 1 /hpf (0 - 5)
[2018-12-30 13:18] LABS: Basophils # (auto) 0.1 uL; Basophils % (auto) 0.6 % (0.0-2.0); Eosinophils # (auto) 0.3 uL; Monocytes # (auto) 0.5 uL; White Blood Cell 11.3 10^3/uL (4.4-10.8)
[2018-12-30 13:20] LABS: Eosinophils % (auto) 2.7 % (0.0-7.0); Hemoglobin 13.3 g/dL (12.2-16.2); Lymphocytes # (auto) 2.5 uL; Lymphocytes % (auto) 21.8 % (10.0-50.0); Mean Corpuscular Hemoglobin 25.7 pg (28.0-32.0); Mean Corpuscular Hgb Conc. 32.3 g/dL (32.0-36.0); Mean Corpuscular Volume 79.4 fL (80.0-100.0); Monocytes % (auto) 4.4 % (0.0-12.0); Neutrophils % (auto) 70.5 % (37.0-80.0); Nucleated Red Blood Cells % 0.1 %; Platelet Count (auto) 246 10^3/uL (140-450); Red Blood Cells 5.17 10^6/uL (4.0-5.20); Red Cell Distribution Width 17.6 % (11.8-14.3)
[2018-12-30 13:23] LABS: Albumin 3.9 g/dL (3.4-5.0); Calcium 9.3 mg/dL (8.5-10.1); Potassium 4.4 mmol/L (3.5-5.1)
[2018-12-30 13:28] LABS: BUN/Creatinine Ratio 24.2; Bilirubin, Total 0.7 mg/dL (0.2-1.0); Total Protein 8.1 g/dL (6.4-8.2)
[2018-12-30] MEDS ORDERED: SODIUM CHLORIDE 0.9% 1,000 ML IVB ONE (16:13)
[2018-12-30 18:26] VITALS: BP 111/78
[2018-12-30] MEDS ORDERED: KETOROLAC TROMETH 15 mg/ml 1ML VL IV ONE (19:00)
== END 2018-12-30 20:32 | disposition home or self-care (01) ==
LOC: ER 11:53
DX: N20.0 Calculus of kidney (principal); R79.89 Other specified abnormal findings of blood chemistry; Z90.49 Acquired absence of other specified parts of digestive tract
CPT/HCPCS: 36415; 74176; 80053; 81001; 81025; 83735; 85025; 94761; 96374; 99284; J1885; J7030

== ENCOUNTER 2019-01-24 23:31 | Emergency (ER) | payer MEDICAID ==
[~2019-01-24] VITALS: Ht 162.6 cm; Wt 77.1 kg
[2019-01-24 23:45] VITALS: BP 119/86
[2019-01-25 00:14] LABS: Basophils # (auto) 0.1 uL; Basophils % (auto) 0.3 % (0.0-2.0); Eosinophils # (auto) 0 uL; Eosinophils % (auto) 0.3 % (0.0-7.0); Hematocrit 39.2 % (36.0-46.0); Hemoglobin 13.6 g/dL (12.2-16.2); Lymphocytes % (auto) 5.6 % (10.0-50.0); Mean Corpuscular Hemoglobin 27.8 pg (28.0-32.0); Mean Corpuscular Hgb Conc. 34.6 g/dL (32.0-36.0); Mean Corpuscular Volume 80.3 fL (80.0-100.0); Monocytes # (auto) 0.8 uL; Monocytes % (auto) 4.9 % (0.0-12.0); Neutrophils # (auto) 15.4 uL; Neutrophils % (auto) 88.9 % (37.0-80.0); Platelet Count (auto) 198 10^3/uL (140-450); Red Blood Cells 4.89 10^6/uL (4.0-5.20); Red Cell Distribution Width 17.4 % (11.8-14.3); White Blood Cell 17.3 10^3/uL (4.4-10.8)
[2019-01-25 00:29] LABS: Calcium 8.9 mg/dL (8.5-10.1); Chloride 106 mmol/L (98-107); Potassium 3.5 mmol/L (3.5-5.1); Sodium 136 mmol/L (136-145)
[2019-01-25 00:33] LABS: Alanine Aminotransferase 77 U/L (13-56); Albumin 3.9 g/dL (3.4-5.0); Anion Gap 10 (5-15); Aspartate Aminotransferase 32 U/L (15-37); BUN/Creatinine Ratio 13.8; Blood Alcohol < 3.0 mg/dL (0-5); Blood Urea Nitrogen 12 mg/dL (7-18); Carbon Dioxide 20 mmol/L (21-32); GFR African American 103 mL/min; GFR Non-African American 85 mL/min; Glucose 114 mg/dL (74-106)
[2019-01-25 00:41] LABS: Alkaline Phosphatase 107 U/L (45-117); Bilirubin, Total 0.8 mg/dL (0.2-1.0)
[2019-01-25 01:35] LABS: Urine Bacteria MOD /hpf (None Seen); Urine Blood Negative /uL (Negative); Urine Mucus FEW (None Seen); Urine Specific Gravity 1.024 (1.001-1.035); Urine WBC 47 /hpf (0 - 5)
[2019-01-25 01:52] LABS: Alcohol, Urine < 3.0 mg/dL (0-5); Amphetamine Screen, Urine NEGATIVE (NEGATIVE); Barbiturate Scree,Urine NEGATIVE (NEGATIVE); Benzodiazephine Screen, Urine NEGATIVE (NEGATIVE); Cannabinoid Screen, Urine POSITIVE (NEGATIVE); Cocaine Screen, Urine NEGATIVE (NEGATIVE); Opiate Scree,Urine NEGATIVE (NEGATIVE); Phencyclidine Screen, Urine NEGATIVE (NEGATIVE)
== END 2019-01-25 01:27 | disposition left against medical advice (07) ==
LOC: ER 23:32
DX: R07.9 Chest pain, unspecified (principal); Z53.21 Procedure and treatment not carried out due to patient leaving prior to being seen by health care provider
CPT/HCPCS: 36415; 71045; 80053; 80307; 80320; 81001; 84484; 84702; 85025; 93005

== ENCOUNTER 2019-07-31 00:07 | Observation (INO) | payer MEDICAID ==
[~2019-07-31] VITALS: Ht 162.6 cm; Wt 85.7 kg
== END 2019-07-31 01:05 | disposition home or self-care (01) | DRG 566 ==
LOC: LDRP 00:07
PROVIDERS: ADMIT Specialist; ATTEND Specialist
DX: O23.42 Unspecified infection of urinary tract in pregnancy, second trimester (principal); Z3A.24 24 weeks gestation of pregnancy
CPT/HCPCS: 59025; 81002; G0378

== ENCOUNTER 2019-10-04 12:32 | Observation (INO) | payer MEDICAID | END 2019-10-04 14:56 | disposition home or self-care (01) | DRG 566 | LOC: LDRP 12:32 | PROVIDERS: ADMIT Obstetrics & Gynecology; ATTEND Obstetrics & Gynecology | DX: O24.419 Gestational diabetes mellitus in pregnancy, unspecified control (principal); O60.03 Preterm labor without delivery, third trimester; Z3A.33 33 weeks gestation of pregnancy | CPT/HCPCS: 76815; 81002; 82962; G0378 ==

== ENCOUNTER 2019-10-06 11:13 | Observation (INO) | payer MEDICAID | END 2019-10-06 12:45 | disposition home or self-care (01) | DRG 566 | LOC: LDRP 11:13 | PROVIDERS: ADMIT Specialist; ATTEND Specialist | DX: O24.419 Gestational diabetes mellitus in pregnancy, unspecified control (principal); Z3A.34 34 weeks gestation of pregnancy | CPT/HCPCS: 59025; 76818; 81002; 82948; 82962; G0378 ==

== ENCOUNTER 2019-10-08 07:45 | Observation (INO) | payer MEDICAID ==
[~2019-10-08] VITALS: Ht 162.6 cm; Wt 91.2 kg
[2019-10-08] MEDS ORDERED: BETAMETHASONE ACET (6MG/ML) 5ML VIAL IM ONE (08:15)
[2019-10-08 08:48] LABS: Alcohol, Urine < 3.0 mg/dL (0-5); Amphetamine Screen, Urine NEGATIVE (NEGATIVE); Barbiturate Scree,Urine NEGATIVE (NEGATIVE); Benzodiazephine Screen, Urine NEGATIVE (NEGATIVE); Cannabinoid Screen, Urine NEGATIVE (NEGATIVE); Cocaine Screen, Urine NEGATIVE (NEGATIVE); Opiate Scree,Urine NEGATIVE (NEGATIVE); Phencyclidine Screen, Urine NEGATIVE (NEGATIVE)
[2019-10-08 08:49] LABS: Urine Amorphous Crystal FEW /hpf (None Seen); Urine Bacteria FEW /hpf (None Seen); Urine Blood 3+ /uL (Negative); Urine Mucus FEW (None Seen); Urine WBC 187 /hpf (0 - 5); Urine WBC Clumps PRESENT /hpf (None Seen)
[2019-10-09] MEDS ORDERED: NIF10C GT (10:42)
[2019-10-09] MEDS ORDERED: GLYB1.257 PO (10:42)
== END 2019-10-08 10:25 | disposition home or self-care (01) | DRG 566 ==
LOC: LDRP 07:45
PROVIDERS: ADMIT Obstetrics & Gynecology; ATTEND Obstetrics & Gynecology
DX: O26.853 Spotting complicating pregnancy, third trimester (principal); Z3A.34 34 weeks gestation of pregnancy
CPT/HCPCS: 76818; 80307; 81001; 81002; 82948; 82962; 84112; 96372; G0378; J0702; Q0114; 59025

== ENCOUNTER 2019-10-09 10:05 | Observation (INO) | payer MEDICAID ==
[~2019-10-09] VITALS: Ht 162.6 cm; Wt 91.2 kg
[2019-10-09] MEDS ORDERED: NIF10C GT (10:42)
[2019-10-09] MEDS ORDERED: GLYB1.257 PO (10:42)
[2019-10-09] MEDS ORDERED: BETAMETHASONE ACET (6MG/ML) 5ML VIAL IM SCH (10:48)
== END 2019-10-09 11:13 | disposition home or self-care (01) | DRG 566 ==
LOC: LDRP 10:05 → UNDOADMOB 10:16
PROVIDERS: ADMIT Specialist; ATTEND Specialist
DX: O24.419 Gestational diabetes mellitus in pregnancy, unspecified control (principal); Z3A.34 34 weeks gestation of pregnancy
CPT/HCPCS: 59025; 81002; 96372; G0378

== ENCOUNTER 2019-10-11 13:18 | Observation (INO) | payer MEDICAID ==
[~2019-10-11 13:18] MED LIST changes: +GLYB1.257 PO; +NIF10C GT
== END 2019-10-11 14:15 | disposition home or self-care (01) | DRG 566 ==
LOC: LDRP 13:18
PROVIDERS: ADMIT Specialist; ATTEND Specialist
DX: O24.419 Gestational diabetes mellitus in pregnancy, unspecified control (principal); Z3A.34 34 weeks gestation of pregnancy
CPT/HCPCS: 76818; 81002; 82948; 82962; G0378

== ENCOUNTER 2019-10-15 09:25 | Observation (INO) | payer MEDICAID | END 2019-10-15 10:37 | disposition home or self-care (01) | DRG 566 | LOC: LDRP 09:25 | PROVIDERS: ADMIT Specialist; ATTEND Specialist | DX: O24.419 Gestational diabetes mellitus in pregnancy, unspecified control (principal); Z3A.35 35 weeks gestation of pregnancy | CPT/HCPCS: 76818; 81002; 82948; 82962; G0378 ==

== ENCOUNTER 2019-10-21 17:54 | Observation (INO) | payer MEDICAID ==
[~2019-10-21] VITALS: Ht 162.6 cm; Wt 92.1 kg
[2019-10-21] MEDS ORDERED: NIFEdipine 10 MG CAP ONE (19:29)
[2019-10-21] MEDS ORDERED: NIFEdipine 10 MG CAP PO ONE (19:30)
== END 2019-10-21 20:42 | disposition home or self-care (01) | DRG 566 ==
LOC: LDRP 17:54
PROVIDERS: ADMIT Specialist; ATTEND Specialist
DX: O42.913 Preterm premature rupture of membranes, unspecified as to length of time between rupture and onset of labor, third trimester (principal); M54.5 Low back pain; Z3A.36 36 weeks gestation of pregnancy
CPT/HCPCS: 59025; 76818; 81002; 82962; 84112; G0378; Q0114

== ENCOUNTER 2019-10-22 13:51 | Observation (INO) | payer MEDICAID | END 2019-10-22 16:30 | disposition home or self-care (01) | DRG 566 | LOC: LDRP 13:51 | PROVIDERS: ADMIT Specialist; ATTEND Specialist | DX: O24.415 Gestational diabetes mellitus in pregnancy, controlled by oral hypoglycemic drugs (principal); O42.913 Preterm premature rupture of membranes, unspecified as to length of time between rupture and onset of labor, third trimester; Z3A.36 36 weeks gestation of pregnancy | CPT/HCPCS: 76815; 81002; 82948; 82962; G0378 ==

== ENCOUNTER 2019-10-25 09:41 | Observation (INO) | payer MEDICAID ==
[~2019-10-25] VITALS: Ht 157.5 cm; Wt 92.5 kg
== END 2019-10-25 10:35 | disposition home or self-care (01) | DRG 566 ==
LOC: LDRP 09:41
PROVIDERS: ADMIT Obstetrics & Gynecology; ATTEND Obstetrics & Gynecology
DX: O24.415 Gestational diabetes mellitus in pregnancy, controlled by oral hypoglycemic drugs (principal); O60.03 Preterm labor without delivery, third trimester; Z3A.36 36 weeks gestation of pregnancy
CPT/HCPCS: 59025; 76818; 81002; 82962; G0378

== ENCOUNTER 2019-10-31 10:35 | Observation (INO) | payer MEDICAID | END 2019-10-31 12:25 | disposition home or self-care (01) | DRG 566 | LOC: LDRP 10:35 | PROVIDERS: ADMIT Obstetrics & Gynecology; ATTEND Obstetrics & Gynecology | DX: O42.92 Full-term premature rupture of membranes, unspecified as to length of time between rupture and onset of labor (principal); O26.893 Other specified pregnancy related conditions, third trimester; N89.8 Other specified noninflammatory disorders of vagina; Z3A.37 37 weeks gestation of pregnancy | CPT/HCPCS: 59025; 81002; 84112; G0378; Q0114 ==

== ENCOUNTER → 2019-11-01 | Outpatient (CLI) | payer MEDICAID | END | disposition home or self-care (01) | LOC: LDRP 10:36 → LAB 10:36 → UNDOADMOB 10:36 → LDRP 10:59 → UNDODISOB 13:23 → EDSTATUS 11-29 07:46 | PROVIDERS: ATTEND Specialist | DX: O24.419 Gestational diabetes mellitus in pregnancy, unspecified control (principal); Z3A.00 Weeks of gestation of pregnancy not specified | CPT/HCPCS: 76818; G0378 ==

== ENCOUNTER 2019-11-02 23:50 | Observation (INO) | payer MEDICAID ==
[~2019-11-02] VITALS: Ht 162.6 cm; Wt 94.8 kg
[2019-11-03 02:43] LABS: Amphetamine Screen, Urine NEGATIVE (NEGATIVE); Barbiturate Scree,Urine NEGATIVE (NEGATIVE); Benzodiazephine Screen, Urine NEGATIVE (NEGATIVE); Cannabinoid Screen, Urine NEGATIVE (NEGATIVE); Cocaine Screen, Urine NEGATIVE (NEGATIVE); Opiate Scree,Urine NEGATIVE (NEGATIVE); Phencyclidine Screen, Urine NEGATIVE (NEGATIVE)
[2019-11-03 03:35] LABS: Urine Specific Gravity 1.016 (1.001-1.035)
[2019-11-03 03:36] LABS: Urine Blood 2+ /uL (Negative)
[2019-11-03 03:38] LABS: Urine WBC 50 /hpf (0 - 5)
[2019-11-03 03:39] LABS: Urine Bacteria MODERATE /hpf (None Seen)
== END 2019-11-03 04:05 | disposition home or self-care (01) | DRG 566 ==
LOC: LDRP 23:50
PROVIDERS: ADMIT Obstetrics & Gynecology; ATTEND Obstetrics & Gynecology
DX: O42.92 Full-term premature rupture of membranes, unspecified as to length of time between rupture and onset of labor (principal); R10.2 Pelvic and perineal pain; Z86.32 Personal history of gestational diabetes; Z3A.38 38 weeks gestation of pregnancy
CPT/HCPCS: 59025; 76818; 80307; 81001; 81002; 82962; 84112; G0378; Q0114

== ENCOUNTER 2019-11-06 11:42 | Inpatient (IN) | payer MEDICAID ==
[~2019-11-06] VITALS: Ht 162.6 cm; Wt 94.8 kg
[2019-11-06] MEDS ORDERED: LACT. RINGERS/OXYTOCIN 20UNITS 1,000 ML IV SCH (11:51)
[2019-11-06] MEDS ORDERED: WITCH HAZEL-GLYCERIN PAD TOP PRN (12:00)
[2019-11-06] MEDS ORDERED: CARBOPROST TROMETHAMINE 250 MCG/1ML VIAL IM PRN (12:00)
[2019-11-06] MEDS ORDERED: LIDOCAINE 2%HCL (LOCAL ANESTH.) INJ 20ML MDV ID PRN (12:00)
[2019-11-06] MEDS ORDERED: DERMOPLAST 60ML BOTTLE TOP PRN (12:00)
[2019-11-06] MEDS ORDERED: PHISODERM TOP SOLN 240ML BTL TOP PRN (12:00)
[2019-11-06 12:45] LABS: Basophils % (auto) 0.5 % (0.0-2.0); Eosinophils # (auto) 0.1 10 ^3/uL (0-0.8); White Blood Cell 9.9 10^3/uL (4.4-10.8)
[2019-11-06 12:47] LABS: Basophils # (auto) 0 10 ^3/uL (0-0.2); Eosinophils % (auto) 1.4 % (0.0-7.0); Hematocrit 37.3 % (36.0-46.0); Hemoglobin 12.5 g/dL (12.2-16.2); Lymphocytes # (auto) 1.3 10 ^3/uL (0.4-5.4); Mean Corpuscular Hemoglobin 26.5 pg (28.0-32.0); Mean Corpuscular Hgb Conc. 33.4 g/dL (32.0-36.0); Mean Corpuscular Volume 79.3 fL (80.0-100.0); Monocytes # (auto) 0.4 10 ^3/uL (0-1.3); Monocytes % (auto) 4.1 % (0.0-12.0); Nucleated Red Blood Cells % 0.4 %; Platelet Count (auto) 129 10^3/uL (140-450); Red Blood Cells 4.71 10^6/uL (4.0-5.20); Red Cell Distribution Width 18.2 % (11.8-14.3)
[2019-11-06 13:01] LABS: INR 0.96 (0.9-1.15); Partial Thromboplastin Time 24.6 sec (23.64-32.05)
[2019-11-06 13:02] LABS: Albumin 2.8 g/dL (3.4-5.0); Calcium 8.5 mg/dL (8.5-10.1); Potassium 3.7 mmol/L (3.5-5.1)
[2019-11-06 13:06] LABS: BUN/Creatinine Ratio 14.5; Bilirubin, Total 0.4 mg/dL (0.2-1.0); Total Protein 7.4 g/dL (6.4-8.2); Uric Acid 4.7 mg/dL (2.6-6.0)
[2019-11-06 13:42] LABS: Urine Bacteria NONE SEEN /hpf (None Seen); Urine Blood Negative /uL (Negative); Urine Mucus FEW (None Seen); Urine Specific Gravity 1.014 (1.001-1.035); Urine WBC 1 /hpf (0 - 5)
[2019-11-06] MEDS ORDERED: fentaNYL 200mCg/100ml W ROPIVA 100 ML EPI SCH ×2 (13:45→14:30)
[2019-11-06] MEDS ORDERED: ePHEDrine SULFATE 50 MG/ML AMP IV ONE ×2 (13:45→14:30)
[2019-11-06] MEDS ORDERED: NALOXONE HCL 0.4 MG/ML VIAL IV ONE ×2 (13:45→14:30)
[2019-11-06] MEDS: LACTATED RINGER'S 1,000 ML IV SCH (13:54)
[2019-11-06 14:03] LABS: Amphetamine Screen, Urine NEGATIVE (NEGATIVE); Barbiturate Scree,Urine NEGATIVE (NEGATIVE); Benzodiazephine Screen, Urine NEGATIVE (NEGATIVE); Cannabinoid Screen, Urine NEGATIVE (NEGATIVE); Cocaine Screen, Urine NEGATIVE (NEGATIVE); Opiate Scree,Urine NEGATIVE (NEGATIVE); Phencyclidine Screen, Urine NEGATIVE (NEGATIVE)
[2019-11-06] MEDS ORDERED: SODIUM CHLORIDE 0.9% 500 ML IV PRN (14:17)
[2019-11-06] MEDS ORDERED: TERBUTALINE SULFATE 1 MG/ML 1ML VIAL SC PRN (15:45)
[2019-11-06 19:00] VITALS: BP 125/64
[2019-11-06 23:00] VITALS: BP 110/71
[2019-11-07] MEDS: IBUPROFEN 600 MG TAB PO PRN ×3 (00:46→14:41)
[2019-11-07 03:00] VITALS: BP 114/61
[2019-11-07 06:57] VITALS: BP 106/71
[2019-11-07 11:05] VITALS: BP 114/82
[2019-11-07 14:45] VITALS: BP 115/76
[2019-11-14 01:51] LABS: RPR Non Reactive (Non Reactive)
== END 2019-11-07 18:07 | disposition home or self-care (01) | DRG 560 ==
LOC: LDRP 11:42 → OBSVTOIN 11:46
PROVIDERS: ADMIT Specialist; ATTEND Specialist
PROC: 10E0XZZ Delivery of Products of Conception, External Approach (ICD-10-PCS; principal; 2019-11-06)
PROC: 3E0R3BZ Introduction of Anesthetic Agent into Spinal Canal, Percutaneous Approach (ICD-10-PCS; 2019-11-06)
PROC: 00HU33Z Insertion of Infusion Device into Spinal Canal, Percutaneous Approach (ICD-10-PCS; 2019-11-06)
PROC: 10907ZC Drainage of Amniotic Fluid, Therapeutic from Products of Conception, Via Natural or Artificial Opening (ICD-10-PCS; 2019-11-06)
DX: O69.81X0 Labor and delivery complicated by cord around neck, without compression, not applicable or unspecified (principal); Z37.0 Single live birth; Z3A.38 38 weeks gestation of pregnancy; Z86.32 Personal history of gestational diabetes
CPT/HCPCS: 36415; 59025; 59409; 62282; 80053; 80307; 81001; 82948; 82962; 84112; 84550; 85025; 85610; 85730; 86592; 86850; 86900; 86901; 94760; 96361; 96366; G0378; J2590

== ENCOUNTER 2020-01-17 15:02 | Emergency (ER) | payer MEDICAID ==
[~2020-01-17] VITALS: Ht 162.6 cm; Wt 83.0 kg
[~2020-01-17 15:02] MED LIST changes: -GLYB1.257 PO; -NIF10C GT
[2020-01-17 15:27] VITALS: BP 146/87
== END 2020-01-17 17:21 | disposition home or self-care (01) ==
LOC: ER 15:02
DX: S02.2XXA Fracture of nasal bones, initial encounter for closed fracture (principal); S00.83XA Contusion of other part of head, initial encounter; S09.8XXA Other specified injuries of head, initial encounter; Y08.89XA Assault by other specified means, initial encounter; Y93.89 Activity, other specified; Y92.89 Other specified places as the place of occurrence of the external cause; Y99.8 Other external cause status
CPT/HCPCS: 70450; 70486; 81002; 81025

== ENCOUNTER 2020-06-16 14:34 | Observation (INO) | payer MEDICAID ==
[2020-06-16 20:54] LABS: Urine Bacteria FEW /hpf (None Seen); Urine Blood Negative /uL (Negative); Urine Mucus FEW (None Seen); Urine Specific Gravity 1.022 (1.001-1.035); Urine WBC 10 /hpf (0 - 5)
[2020-06-16 21:11] LABS: Amphetamine Screen, Urine NEGATIVE (NEGATIVE); Barbiturate Scree,Urine NEGATIVE (NEGATIVE); Benzodiazephine Screen, Urine NEGATIVE (NEGATIVE); Cannabinoid Screen, Urine NEGATIVE (NEGATIVE); Cocaine Screen, Urine NEGATIVE (NEGATIVE); Opiate Scree,Urine NEGATIVE (NEGATIVE); Phencyclidine Screen, Urine NEGATIVE (NEGATIVE)
== END 2020-06-16 16:12 | disposition home or self-care (01) ==
LOC: LDRP 14:34
PROVIDERS: ADMIT Obstetrics & Gynecology; ATTEND Obstetrics & Gynecology
DX: O23.42 Unspecified infection of urinary tract in pregnancy, second trimester (principal); O26.852 Spotting complicating pregnancy, second trimester; Z90.49 Acquired absence of other specified parts of digestive tract; Z86.32 Personal history of gestational diabetes; Z87.59 Personal history of other complications of pregnancy, childbirth and the puerperium; Z3A.22 22 weeks gestation of pregnancy
CPT/HCPCS: 59025; 80307; 81001; 81002; G0378

== ENCOUNTER 2020-09-30 16:23 | Observation (INO) | payer MEDICAID | END 2020-09-30 17:30 | disposition home or self-care (01) | LOC: LDRP 16:23 | PROVIDERS: ADMIT Specialist; ATTEND Specialist | DX: O36.8130 Decreased fetal movements, third trimester, not applicable or unspecified (principal); O26.853 Spotting complicating pregnancy, third trimester; Z3A.37 37 weeks gestation of pregnancy | CPT/HCPCS: 59025; 76817; 76818; 81002; G0378 ==

== ENCOUNTER 2020-10-03 19:13 | Observation (INO) | payer MEDICAID ==
[2020-10-03] MEDS ORDERED: LACTATED RINGER'S 1,000 ML IV ONE (19:30)
== END 2020-10-03 22:24 | disposition home or self-care (01) ==
LOC: LDRP 19:13
PROVIDERS: ADMIT Specialist; ATTEND Specialist
DX: O62.9 Abnormality of forces of labor, unspecified (principal); Z3A.38 38 weeks gestation of pregnancy
CPT/HCPCS: 59025; 81002; 96360; 96361; G0378

== ENCOUNTER 2020-10-04 00:38 | Inpatient (IN) | payer MEDICAID ==
[~2020-10-04] VITALS: Ht 162.6 cm; Wt 94.8 kg
[2020-10-04] MEDS ORDERED: LIDOCAINE 2%HCL (LOCAL ANESTH.) INJ 20ML MDV IJ ONE (01:00)
[2020-10-04] MEDS ORDERED: PHISODERM TOP SOLN 240ML BTL TOP PRN (01:00)
[2020-10-04] MEDS ORDERED: BUTORPHANOL TARTRATE 2 MG/1 ML VIAL IV PRN ×2 (01:00)
[2020-10-04] MEDS ORDERED: PROMETHAZINE HCL 25 MG/ML 1ML IV PRN (01:00)
[2020-10-04] MEDS ORDERED: PENICILLIN G POT 5MIL/D5 50ML 50 ML IV ONE (01:00)
[2020-10-04] MEDS ORDERED: WITCH HAZEL-GLYCERIN PAD TOP PRN (01:00)
[2020-10-04] MEDS ORDERED: DERMOPLAST 60ML BOTTLE TOP PRN (01:00)
[2020-10-04] MEDS ORDERED: LACTATED RINGER'S 1,000 ML IV SCH (01:00)
[2020-10-04] MEDS ORDERED: LACT. RINGERS/OXYTOCIN 20UNITS 500 ML IV ONE ×2 (01:30→02:00)
[2020-10-04 01:47] LABS: Alcohol, Urine < 3.0 mg/dL (0-10); Amphetamine Screen, Urine NEGATIVE (NEGATIVE); Barbiturate Scree,Urine NEGATIVE (NEGATIVE); Benzodiazephine Screen, Urine NEGATIVE (NEGATIVE); Cannabinoid Screen, Urine NEGATIVE (NEGATIVE); Cocaine Screen, Urine NEGATIVE (NEGATIVE); Opiate Scree,Urine NEGATIVE (NEGATIVE); Phencyclidine Screen, Urine NEGATIVE (NEGATIVE)
[2020-10-04 02:02] LABS: Basophils # (auto) 0 10 ^3/uL (0-0.2); Basophils % (auto) 0.3 % (0.0-2.0); Eosinophils # (auto) 0.2 10 ^3/uL (0-0.8); Hemoglobin 10.7 g/dL (12.2-16.2); Monocytes # (auto) 0.5 10 ^3/uL (0-1.3); Nucleated Red Blood Cells % 0.1 %; Platelet Count (auto) 120 10^3/uL (140-450)
[2020-10-04 02:04] LABS: Eosinophils % (auto) 1.6 % (0.0-7.0); Lymphocytes # (auto) 1.3 10 ^3/uL (0.4-5.4); Lymphocytes % (auto) 12.3 % (10.0-50.0); Mean Corpuscular Hemoglobin 26.3 pg (28.0-32.0); Mean Corpuscular Hgb Conc. 33.5 g/dL (32.0-36.0); Mean Corpuscular Volume 78.6 fL (80.0-100.0); Monocytes % (auto) 4.6 % (0.0-12.0); Neutrophils # (auto) 8.9 10 ^3/uL (1.6-8.6); Neutrophils % (auto) 81.2 % (37.0-80.0); Red Blood Cells 4.07 10^6/uL (4.0-5.20); Red Cell Distribution Width 18.2 % (11.8-14.3)
[2020-10-04 02:07] LABS: Albumin 2.7 g/dL (3.4-5.0); BUN/Creatinine Ratio 18.2; Calcium 8.5 mg/dL (8.5-10.1); Potassium 3.6 mmol/L (3.5-5.1)
[2020-10-04 02:09] LABS: Bilirubin, Total 0.4 mg/dL (0.2-1.0); Total Protein 6.6 g/dL (6.4-8.2)
[2020-10-04 02:11] LABS: Urine Amorphous Crystal FEW /hpf (None Seen); Urine Bacteria NONE SEEN /hpf (None Seen); Urine Blood 2+ /uL (Negative); Urine Mucus FEW (None Seen); Urine Specific Gravity 1.013 (1.001-1.035); Urine WBC 46 /hpf (0 - 5)
[2020-10-04 02:19] LABS: INR 0.98 (0.9-1.15); Partial Thromboplastin Time 25.4 sec (23.0-31.2)
[2020-10-04] MEDS: IBUPROFEN 600 MG TAB PO PRN ×3 (03:13→16:46)
[2020-10-04] MEDS ORDERED: PENICILLIN G POTASSIUM 2,500,000 UNITS in D5W 5% 50 ML IV SCH (05:00)
[2020-10-04 05:15] VITALS: BP 128/70
[2020-10-04 07:00] VITALS: BP 110/89
[2020-10-04 11:00] VITALS: BP 106/68
[2020-10-04 15:00] VITALS: BP 124/76
[2020-10-04] MEDS ORDERED: ACETAMINOPHEN 325 MG TAB PO PRN (19:00)
[2020-10-04 19:30] VITALS: BP 126/77
[2020-10-04 22:30] VITALS: BP 118/78
[2020-10-05] MEDS: IBUPROFEN 600 MG TAB PO PRN (00:44)
[2020-10-05 03:30] VITALS: BP 120/77
[2020-10-05 05:07] LABS: RPR Non Reactive (Non Reactive)
[2020-10-05 07:00] VITALS: BP 118/70
[2020-10-05 09:13] VITALS: BP 118/70
[2020-10-05 11:00] VITALS: BP 100/56
== END 2020-10-05 10:35 | disposition home or self-care (01) | DRG 560 ==
LOC: LDRP 00:38 → OBSVTOIN 00:38 → LDRP 04:24
PROVIDERS: ADMIT Specialist; ATTEND Specialist
PROC: 10E0XZZ Delivery of Products of Conception, External Approach (ICD-10-PCS; principal; 2020-10-04)
DX: O62.3 Precipitate labor (principal); Z20.822 Contact with and (suspected) exposure to COVID-19; Z3A.38 38 weeks gestation of pregnancy; Z37.0 Single live birth
CPT/HCPCS: 36415; 59025; 59409; 80053; 80307; 81001; 81002; 85025; 85610; 85730; 86592; 86850; 86900; 86901; 87426; 96360; 96361; 96365; 96366; 96374; 96375; G0378; J2540; J2590; J7060

== ENCOUNTER 2021-01-04 22:09 | Emergency (ER) | payer MEDICAID ==
[~2021-01-04] VITALS: Ht 162.6 cm; Wt 86.2 kg
[2021-01-04 22:09] VITALS: BP 133/88
== END 2021-01-05 03:01 | disposition left against medical advice (07) ==
LOC: ER 22:11
DX: U07.1 COVID-19 (principal); J11.1 Influenza due to unidentified influenza virus with other respiratory manifestations; Z53.21 Procedure and treatment not carried out due to patient leaving prior to being seen by health care provider
CPT/HCPCS: 36415; 71045; 87426

== ENCOUNTER 2021-02-21 18:39 | Emergency (ER) | payer MEDICAID ==
[~2021-02-21] VITALS: Ht 162.6 cm; Wt 88.5 kg
[2021-02-21] MEDS ORDERED: SODIUM CHLORIDE 0.9% 500 ML IV ONE (22:00)
[2021-02-21] MEDS ORDERED: KETOROLAC TROMETH 30 MG/ML 1ML VIAL IV ONE (22:00)
[2021-02-22 02:25] LABS: Basophils # (auto) 0.1 10 ^3/uL (0-0.2); Basophils % (auto) 1.1 % (0.0-2.0); Eosinophils # (auto) 0.4 10 ^3/uL (0-0.8); Eosinophils % (auto) 3.7 % (0.0-7.0); Hematocrit 42.2 % (36.0-46.0); Hemoglobin 14.2 g/dL (12.2-16.2); Lymphocytes # (auto) 3.2 10 ^3/uL (0.4-5.4); Lymphocytes % (auto) 26.8 % (10.0-50.0); Mean Corpuscular Hgb Conc. 33.8 g/dL (32.0-36.0); Mean Corpuscular Volume 82.9 fL (80.0-100.0); Monocytes # (auto) 0.5 10 ^3/uL (0-1.3); Monocytes % (auto) 4.3 % (0.0-12.0); Neutrophils # (auto) 7.5 10 ^3/uL (1.6-8.6); Neutrophils % (auto) 64.1 % (37.0-80.0); Nucleated Red Blood Cells % 0.1 %; Red Blood Cells 5.09 10^6/uL (4.0-5.20); Red Cell Distribution Width 15.7 % (11.8-14.3); White Blood Cell 11.7 10^3/uL (4.4-10.8)
[2021-02-22 02:43] LABS: Albumin 4.2 g/dL (3.4-5.0); Calcium 9.5 mg/dL (8.5-10.1); Magnesium 2.5 mg/dL (1.6-2.6); Potassium 4.1 mmol/L (3.5-5.1)
[2021-02-22 02:45] LABS: BUN/Creatinine Ratio 20.3
[2021-02-22 02:47] LABS: Bilirubin, Total 0.6 mg/dL (0.2-1.0); Total Protein 8.6 g/dL (6.4-8.2)
[2021-02-22 04:15] VITALS: BP 121/90
== END 2021-02-22 04:19 | disposition home or self-care (01) ==
LOC: ER 18:40
DX: R22.43 Localized swelling, mass and lump, lower limb, bilateral (principal); E11.9 Type 2 diabetes mellitus without complications; Z79.899 Other long term (current) drug therapy; Z90.89 Acquired absence of other organs
CPT/HCPCS: 36415; 80053; 83735; 85025; 93970

== ENCOUNTER 2022-11-26 01:57 | Emergency (ER) | payer MEDICAID ==
[~2022-11-26] VITALS: Ht 162.6 cm; Wt 75.0 kg
[2022-11-26 02:03] VITALS: BP 137/92
[2022-11-26 02:28] LABS: Basophils # (auto) 0 10 ^3/uL (0-0.2); Basophils % (auto) 0.2 % (0.0-2.0); Eosinophils # (auto) 0.3 10 ^3/uL (0-0.8); Hematocrit 37.5 % (36.0-46.0); Mean Corpuscular Hemoglobin 25.8 pg (28.0-32.0); Monocytes # (auto) 0.5 10 ^3/uL (0-1.3); Red Cell Distribution Width 15.8 % (11.8-14.3); White Blood Cell 10.6 10^3/uL (4.4-10.8)
[2022-11-26 02:30] LABS: Hemoglobin 12.6 g/dL (12.2-16.2); Lymphocytes # (auto) 2.7 10 ^3/uL (0.4-5.4); Lymphocytes % (auto) 25.8 % (10.0-50.0); Mean Corpuscular Hgb Conc. 33.6 g/dL (32.0-36.0); Mean Corpuscular Volume 76.7 fL (80.0-100.0); Monocytes % (auto) 4.9 % (0.0-12.0); Neutrophils % (auto) 66.1 % (37.0-80.0); Nucleated Red Blood Cells % 0.1 %; Red Blood Cells 4.88 10^6/uL (4.0-5.20)
[2022-11-26 02:48] LABS: Albumin 4.2 g/dL (3.4-5.0); Calcium 9.3 mg/dL (8.5-10.1)
[2022-11-26 02:52] LABS: Total Protein 8.2 g/dL (6.4-8.2)
[2022-11-26 03:03] LABS: Potassium 2.8 mmol/L (3.5-5.1)
== END 2022-11-26 02:44 | disposition left against medical advice (07) ==
LOC: ER 01:57
DX: R07.89 Other chest pain (principal); Z53.21 Procedure and treatment not carried out due to patient leaving prior to being seen by health care provider
CPT/HCPCS: 36415; 71045; 80053; 84484; 85025

== ENCOUNTER 2023-08-05 11:25 | Inpatient (IN) | payer MEDICAID ==
[~2023-08-05] VITALS: Ht 30.5 cm; Wt 0.5 kg
[2023-08-05] MEDS ORDERED: MAGNESIUM SULFATE 100 ML IV ONE ×2 (11:42→12:00)
[2023-08-05] MEDS ORDERED: MAGNESIUM SULFATE 40MG/ML 1,000 ML IV ONE (11:42)
[2023-08-05] MEDS ORDERED: LABETALOL HCL 5 MG/ML 4ML SYRINGE IV ONE (11:42)
[2023-08-05] MEDS ORDERED: LABETALOL HCL 5 MG/ML 4ML SYRINGE IV PRN ×3 (12:00→12:15)
[2023-08-05] MEDS ORDERED: ACCU-CHEK COMFORT CURVE STRIP VI PRN (12:00)
[2023-08-05] MEDS ORDERED: BUTORPHANOL TARTRATE 2 MG/1 ML VIAL IV PRN ×2 (12:00)
[2023-08-05] MEDS ORDERED: PENICILLIN G POT 5MIL/D5 50ML 50 ML IV ONE (12:00)
[2023-08-05] MEDS ORDERED: MAGNESIUM SULFATE 40MG/ML 1,000 ML IV SCH (12:00)
[2023-08-05] MEDS ORDERED: LORazepam 2MG/ML-1ML VIAL IV ONE (12:00)
[2023-08-05 12:59] LABS: Basophils # (auto) 0 10 ^3/uL (0-0.2); Lymphocytes # (auto) 0.9 10 ^3/uL (0.4-5.4); Monocytes # (auto) 0.6 10 ^3/uL (0-1.3)
[2023-08-05 13:01] LABS: Basophils % (auto) 0.2 % (0.0-2.0); Eosinophils # (auto) 0 10 ^3/uL (0-0.8); Eosinophils % (auto) 0.3 % (0.0-7.0); Hematocrit 34.7 % (36.0-46.0); Hemoglobin 11.5 g/dL (12.2-16.2); Lymphocytes % (auto) 6.2 % (10.0-50.0); Mean Corpuscular Hemoglobin 26.4 pg (28.0-32.0); Mean Corpuscular Hgb Conc. 33.2 g/dL (32.0-36.0); Mean Corpuscular Volume 79.6 fL (80.0-100.0); Monocytes % (auto) 3.9 % (0.0-12.0); Neutrophils # (auto) 13.7 10 ^3/uL (1.6-8.6); Neutrophils % (auto) 89.4 % (37.0-80.0); Red Blood Cells 4.35 10^6/uL (4.0-5.20); Red Cell Distribution Width 16.8 % (11.8-14.3); White Blood Cell 15.3 10^3/uL (4.4-10.8)
[2023-08-05 13:13] LABS: Albumin 4.2 g/dL (3.2-4.8); Alkaline Phosphatase 100 U/L (46-116); Anion Gap 12 (5-15); Aspartate Aminotransferase 10 U/L (13-40); BUN/Creatinine Ratio 14.9 (10.0-20.0); Bilirubin, Total 0.6 mg/dL (0.2-1.0); Blood Urea Nitrogen 7 mg/dL (9-23); Calcium 8.9 mg/dL (8.7-10.4); Carbon Dioxide 20 mmol/L (20-30); Chloride 105 mmol/L (98-107); Glucose 106 mg/dL (74-106); Partial Thromboplastin Time 25.9 SEC (24.5-34.5); Potassium 3.6 mmol/L (3.5-5.1); Prothrombin Time 10.5 sec (9.3-11.8); Sodium 137 mmol/L (136-145); Total Protein 7.2 g/dL (5.7-8.2); Uric Acid 5.5 mg/dL (3.1-7.8)
[2023-08-05] MEDS ORDERED: LACTATED RINGER'S 1,000 ML IV SCH (13:30)
[2023-08-05 13:35] LABS: Alanine Aminotransferase < 9 U/L (7-40)
[2023-08-05 14:02] LABS: Urine Bacteria FEW /hpf (None Seen); Urine Blood Negative /uL (Negative); Urine Clarity CLOUDY (Clear); Urine Color Yellow (Yellow); Urine Mucus FEW (None Seen); Urine Protein, UAD 2+ (Negative); Urine Specific Gravity 1.022 (1.001-1.035); Urine WBC 215 /hpf (0 - 5); Urine WBC Clumps PRESENT /hpf (None Seen)
[2023-08-05 14:16] LABS: Amphetamine Screen, Urine Pos (NEGATIVE); Barbiturate Scree,Urine Neg (NEGATIVE); Benzodiazephine Screen, Urine Neg (NEGATIVE); Cocaine Screen, Urine Neg (NEGATIVE)
[2023-08-05 14:17] LABS: Cannabinoid Screen, Urine Neg (NEGATIVE); Opiate Scree,Urine Neg (NEGATIVE); Phencyclidine Screen, Urine Neg (NEGATIVE)
[2023-08-05] MEDS ORDERED: NITR-87 PO (15:07)
[2023-08-05 15:16] LABS: Protein, Urine 108.7 mg/dL (0.0-11.9)
[2023-08-05 15:19] LABS: Creatinine, Urine 171.8 mg/dL (30.0-125.0); Urine Protein/Creatinine Ratio 0.63
[2023-08-05] MEDS ORDERED: PENICILLIN G POTASSIUM 2,500,000 UNITS in D5W 5% 50 ML IV SCH (16:00)
[2023-08-06 08:06] LABS: RPR Non Reactive (Non Reactive)
[2023-08-06 10:06] LABS: Rubella Antibodies, IgG 1.83 index (Immune >0.99)
[2023-08-09 18:06] LABS: Treponema pallidum Ab (FTA-Ab) Non Reactive (Non Reactive)
== END 2023-08-05 16:34 | disposition home or self-care (01) | DRG 566 ==
LOC: LDRP 11:25 → OBSVTOIN 11:39
PROVIDERS: ADMIT Obstetrics & Gynecology; ATTEND Obstetrics & Gynecology
DX: O99.322 Drug use complicating pregnancy, second trimester (principal); I15.8 Other secondary hypertension; O14.92 Unspecified pre-eclampsia, second trimester; F15.929 Other stimulant use, unspecified with intoxication, unspecified; O23.42 Unspecified infection of urinary tract in pregnancy, second trimester; O16.2 Unspecified maternal hypertension, second trimester; O99.342 Other mental disorders complicating pregnancy, second trimester; F41.9 Anxiety disorder, unspecified; N39.0 Urinary tract infection, site not specified; Z3A.26 26 weeks gestation of pregnancy
CPT/HCPCS: 36415; 59025; 76805; 80053; 80307; 81001; 81002; 82570; 84156; 84550; 85025; 85379; 85610; 85730; 86592; 86703; 86762; 86850; 86900; 86901; 87340; 94760; G0378; J3490; J7060

== ENCOUNTER 2023-08-12 05:25 | Emergency (ER) | payer MEDICAID ==
[~2023-08-12] VITALS: Ht 167.6 cm; Wt 80.0 kg
[~2023-08-12 05:25] MED LIST changes: +NITR-87 PO
[2023-08-12 05:56] VITALS: PULSE 101; RESP 18; O2SAT 99
[2023-08-12] MEDS: LORazepam 2MG/ML-1ML VIAL IM ONE (06:13)
[2023-08-12 07:34] LABS: Basophils # (auto) 0 10 ^3/uL (0-0.2); Basophils % (auto) 0.3 % (0.0-2.0); Eosinophils # (auto) 0 10 ^3/uL (0-0.8); Eosinophils % (auto) 0.2 % (0.0-7.0); Hematocrit 35.5 % (36.0-46.0); Hemoglobin 11.4 g/dL (12.2-16.2); Lymphocytes # (auto) 1.1 10 ^3/uL (0.4-5.4); Lymphocytes % (auto) 7.6 % (10.0-50.0); Mean Corpuscular Hemoglobin 25.8 pg (28.0-32.0); Mean Corpuscular Volume 80.6 fL (80.0-100.0); Monocytes # (auto) 0.5 10 ^3/uL (0-1.3); Monocytes % (auto) 3.3 % (0.0-12.0); Neutrophils # (auto) 12.6 10 ^3/uL (1.6-8.6); Neutrophils % (auto) 88.6 % (37.0-80.0); Red Blood Cells 4.41 10^6/uL (4.0-5.20); Red Cell Distribution Width 16.6 % (11.8-14.3); White Blood Cell 14.2 10^3/uL (4.4-10.8)
[2023-08-12 07:53] LABS: Acetaminophen < 2.0 UG/ML (10.0-20.0)
[2023-08-12 07:54] LABS: Salicylate < 3.0 mg/dL (2.8-20.0)
[2023-08-12 08:06] LABS: Alanine Aminotransferase 10 U/L (7-40); Albumin 4.2 g/dL (3.2-4.8); Alkaline Phosphatase 109 U/L (46-116); Anion Gap 12 (5-15); Aspartate Aminotransferase 29 U/L (13-40); Bilirubin, Total 0.6 mg/dL (0.2-1.0); Blood Alcohol < 3.0 mg/dL (<10); Calcium 9.1 mg/dL (8.5-10.1); Carbon Dioxide 19 mmol/L (20-30); Chloride 108 mmol/L (98-107); Glucose 89 mg/dL (74-106); Potassium 3.4 mmol/L (3.5-5.1); Sodium 139 mmol/L (136-145); Total Protein 7.4 g/dL (5.7-8.2)
[2023-08-12 08:09] LABS: BUN/Creatinine Ratio 8.1 (10.0-20.0); Blood Urea Nitrogen < 5 mg/dL (9-23)
[2023-08-12 08:36] VITALS: PULSE 94; RESP 13; O2SAT 99
[2023-08-12 12:24] LABS: Urine Bacteria FEW /hpf (None Seen); Urine Blood TRACE /uL (Negative); Urine Clarity CLOUDY (Clear); Urine Color Yellow (Yellow); Urine Mucus FEW (None Seen); Urine Protein, UAD 2+ (Negative); Urine Specific Gravity 1.022 (1.001-1.035); Urine WBC 372 /hpf (0 - 5); Urine WBC Clumps PRESENT /hpf (None Seen); Urine pH 6.5 (5.0-8.0)
[2023-08-12 12:35] VITALS: BP 132/92; PULSE 99; RESP 18; O2SAT 99
[2023-08-12 12:59] LABS: Amphetamine Screen, Urine Pos (NEGATIVE)
[2023-08-12 13:00] LABS: Barbiturate Scree,Urine Neg (NEGATIVE); Benzodiazephine Screen, Urine Neg (NEGATIVE); Cocaine Screen, Urine Pos (NEGATIVE); Opiate Scree,Urine Neg (NEGATIVE)
[2023-08-12 13:01] LABS: Cannabinoid Screen, Urine Neg (NEGATIVE); Phencyclidine Screen, Urine Neg (NEGATIVE)
[2023-08-12] MEDS ORDERED: NITR-87 PO (13:11)
== END 2023-08-12 17:25 | disposition left against medical advice (07) ==
LOC: ER 05:25 → EDBD 05:25 → ER 17:25
DX: O99.342 Other mental disorders complicating pregnancy, second trimester (principal); R10.2 Pelvic and perineal pain; O23.42 Unspecified infection of urinary tract in pregnancy, second trimester; F41.9 Anxiety disorder, unspecified; F32.9 Major depressive disorder, single episode, unspecified; F15.90 Other stimulant use, unspecified, uncomplicated; Z3A.27 27 weeks gestation of pregnancy; Z88.8 Allergy status to other drugs, medicaments and biological substances; Z98.890 Other specified postprocedural states; Z79.899 Other long term (current) drug therapy
CPT/HCPCS: 36415; 76805; 80053; 80307; 80320; 80329; 81001; 84702; 85025; 96372; 99285; J2060